=== PATIENT | male | born 2000 | race Caucasian/White ===

== ENCOUNTER 2022-08-27 04:36 | Emergency (ER) | payer OTHER, SELFPAY ==
[2022-08-27 04:43] VITALS: BP 138/68; PULSE 60; RESP 16; TEMP 36.4; O2SAT 99; BMI 23.6
--- NOTE | 2022-08-27 05:03 | ED.SKABFB ---
HPI - Skin/Abscess/Foreign Bdy General Chief complaint: Allergic Reaction Stated complaint: rash Time Seen by Provider: 08/27/22 04:50 Source: patient Mode of arrival: ambulatory History of Present Illness HPI narrative: 23-year-old male who comes in with itchy rash since Saturday and reports that his brothers yd where he has been abuts bushes and trees and he states that the rash has been very itchy but he denies any lip/face/tongue swelling. He denies any medications or changes in soaps/shampoo/lotions. Related Data Previous Rx's Medication Instructions Recorded prednisone 5 mg tablet 5 mg PO DAILY #4 tabs 08/27/22 Allergies Allergy/AdvReac Type Severity Reaction Status Date / Time No Known Allergies Allergy Verified 08/27/22 04:43 Review of Systems Review of Systems: Pertinent positives and negatives as stated in HPI [facility] Past Medical History Source: nursing notes reviewed Social History Social History Alcohol intake: current Smoked in Last 30 Days: No Advance Directives: No Advance Directives Information Provided: No Physical Exam Vital Signs: Vital Signs: Last Vital Signs Temp 97.6 F 08/27/22 04:43 Pulse 60 08/27/22 04:43 Resp 16 08/27/22 04:43 BP 138/68 08/27/22 04:43 Pulse Ox 99 08/27/22 04:43 O2 Del Method Room Air 08/27/22 04:43 BMI result Body Mass Index 23.6 VITAL SIGNS: Reviewed. GENERAL: Well developed, well nourished, in no acute distress. HEAD: Normocephalic/atraumatic EYES: PERRLA, EOMI EARS: Ext canals without abnormality LUNGS: Normal breath sounds. No adventitious sounds or accessory muscle use. SpO2<99> CARDIOVASCULAR: Regular rate and rhythm without noted murmurs ABDOMEN: Soft, non-tender, non-distended with bowel sounds. MUSCULOSKELETAL: No tenderness, deformities, or effusions noted on gross inspection. EXTREMITIES: No cyanosis, clubbing or edema. SKIN: Inspection of the skin reveals rash appears to be on bilateral forearms at the corners of each to the eyebrows on discrete areas of the neck, torso NEUROLOGIC: Alert and oriented x 4. Strength and sensation to light touch were grossly intact x 4. Medications Administered Discontinued Medications Generic Name Dose Route Start Last Admin Trade Name Christiano PRN Reason Stop Dose Admin Diphenhydramine HCl 25 mg 08/27/22 05:02 08/27/22 05:07 Diphenhydramine Hcl 25 Mg Capsule PO 08/27/22 05:03 25 mg ONCE ONE Administration Prednisone 5 mg 08/27/22 05:02 08/27/22 05:07 Prednisone 5 Mg Tablet PO 08/27/22 05:03 5 mg ONCE ONE Administration Medical Decision Making Medical Decision Making MDM Narrative: 22-year-old male with history and clinical presentation most suggestive of allergic dermatitis secondary to poison steffanie. He received Benadryl as well as low-dose prednisone here in the emergency room and was counseled on further management on the discharge paperwork. Differential Diagnosis Please see the discussion above Discharge Plan Discharge Clinical Impression: Allergic dermatitis due to poison steffanie Patient Disposition: Home, Self-Care Instructions: Poison Steffanie (ED) Additional Instructions: 1. Recommend lukewarm showers to prevent further spread of the poison steffanie. 2. Recommend trying [id number] Claritin (loratadine) for itch control during the day but you will need to take Benadryl, 25 mg, in the evening. 3. Complete the short course of steroids. Above all else try to avoid scratching your self anywhere. Use a nail brush to clean underneath your nails with soap and water. Prescriptions: New prednisone 5 mg tablet 5 mg PO DAILY Qty: 4 0RF Interventions: ED Discharge Assessment Last Done: 08/27/22 05:12 Discharge Date/Time: 08/27/22 05:16
[2022-08-27] MEDS: predniSONE 5 MG TABLET PO (05:07)
[2022-08-27] MEDS: diphenhydrAMINE HCL 25 MG CAPSULE PO (05:07)
--- OUTSIDE RECORDS SUMMARY | 2022-08-27 05:15 | XMS_ITS | Continuity of Care Document ---
Author Name Unknown Organization [facility] Address [address] [place] [address]- Care Team Providers Care Regulatory Consultant Name Role Phone Ajit Anthony MD Primary Care Physician [place] [facility] [place]s): 02/28/21 - 03/30/21 [facility] [address] [place], [place] [address] Attending Physician: Kymberly Deshpande Admitting Physician: AdmKymberly bates Referring Physician: Admtr, Kymberly Allergies, Adverse Reactions, Alerts Substance Reaction Severity Status Vicodin 1 C/O - a headache Active 1severe Immunizations Given and Recorded Vaccine Date Status Refusal Reason influenza virus vaccine, inactivated 1 01/24/21 Gi kevin influenza virus vaccine, inactivated 2 03/14/17 Gi kevin influenza virus vaccine, inactivated 02/08/16 Give n Human Papillomavirus Vaccine 02/08/16 Given Human Papillomavirus Vaccine 07/01/14 Given tetanus/diphtheria/pertussis, acel(Tdap) 07/01/14 Given Meningococcal Conjugate Vaccine 07/01/14 Given Varicella Virus Vaccine 06/19/06 Given Varicella Virus Vaccine 03/17/03 Given Measles/Mumps/Rubella Virus Vaccine 3 06/19/06 Giv en Measles/Mumps/Rubella Virus Vaccine 03/17/03 Given Poliovirus Vaccine, Inactivated 06/19/06 Given Poliovirus Vaccine, Inactivated 02 Given Poliovirus Vaccine, Inactivated 02 Given Poliovirus Vaccine, Inactivated 02 Given Diphth/Pertussis,Acel/Tetanus (oldterm) 06/19/06 G iven pneumococcal 7-valent vaccine 04/24/04 Given pneumococcal 7-valent vaccine 02 Given pneumococcal 7-valent vaccine 02 Given pneumococcal 7-valent vaccine 02 Given Haemophilus B conjugate (HbOC) vaccine 06/21/03 Gi kevin Haemophilus B conjugate (HbOC) vaccine 02 Gi kevin Haemophilus B conjugate (HbOC) vaccine 02 Gi kevin Haemophilus B conjugate (HbOC) vaccine 02 Gi kevin diphtheria/tetanus/pertussis, acel(DTaP) 06/21/03 Given diphtheria/tetanus/pertussis, acel(DTaP) 02 Given diphtheria/tetanus/pertussis, acel(DTaP) 02 Given diphtheria/tetanus/pertussis, acel(DTaP) 02 Given hepatitis B pediatric vaccine 02 Given hepatitis B pediatric vaccine 02 Given hepatitis B pediatric vaccine 02 Given 1Result Comment: Patient tollerated well 2Result Comment: [03/14/2017] [facility] [id number] 3Result Comment: [06/19/2006] proquad Medications Colace sodium 100 mg oral capsule 100 mg, 1, capsule, By Mouth, 2 times a day, Refills 0, Maintenance, 11/29/20 16:38:00 EDT, Partialfill upon patient request if the prescription is for a schedule II opioid drug. Start Date: 11/29/20 Status: Ordered cyclobenzaprine 10 mg oral tablet 10 mg, 1, tablet, By Mouth, 3 times a day, PRN, Refills 0, Maintenance, Spasm, 11/29/20 16:38:00 EDT, Partial fill upon patient request if the prescription is for a schedule II opioid drug. Start Date: 11/29/20 Status: Ordered gabapentin 300 mg oral capsule See Instructions, 1 capsule By Mouth in a.m., 1 at noon and 2 capsules at bedtime Dx: pelvic fracture, # 120 capsule, Refills 0, Tot. Refills 0, Maintenance, 12/19/20 15:52:00 EDT, Instructions Replace Required Details, Route to Pharmacy Electronical... Start Date: 12/19/20 Status: Ordered ibuprofen 800 mg oral tablet 800 mg, 1, tablet, By Mouth, 3 times a day, PRN, for 30 days, with food or milk, # 90 tablet, Refills 2, Tot. Refills 2, Acute 04/13/21 17:12:00 EST, Pain , Moderate, 01/13/21 17:12:00 EDT, Route to Pharmacy Electronically, [facility]/pharmacy #[id number], Partial... Start Date: 01/13/21 Stop Date: 04/13/21 Status: Ordered pantoprazole 40 mg oral delayed release tablet 1 tablet = 40 mg, By Mouth, Daily, # 30 tablet, 4 Refills, Maintenance, 12/19/20 15:48:00 EDT, EC Tablet Start Date: 12/19/20 Stop Date: 01/18/21 Status: Ordered Senna 8.6 mg oral tablet 17.2 mg, 2, tablet, By Mouth, Daily, Refills 0, Maintenance, 11/29/20 16:38:00 EDT, Tablet, Partialfill upon patient request if the prescription is for a schedule II opioid drug. Start Date: 11/29/20 Status: Ordered Tylenol 325 mg oral tablet 650 mg, 2, tablet, By Mouth, Every 4 hours, Refills 0, Maintenance, 11/29/20 16:38:00 EDT, Partial fill upon patient request if the prescription is for a schedule II opioid drug. Start Date: 11/29/20 Status: Ordered Problem List Condition Effective Dates Status Health Status Inform ant Closed pelvic fracture (left superior pubc ramus and inferior pubic ramus fractures)(Confirmed) 11/23/20 Active Closed sacral fracture(Confirmed) 11/23/20 Active Displaced fracture of 3rd an d 4th metatarsal bone of left foot with delayed healing(Confirmed) 11/23/20 Active Migraine headache(Confirmed) Active Social History Social History Type Response Smoking Status Never smoker; Tobacc o user in household: No; Type: Cigarettes; Other: father smokes; entered on: 08/29/16 Sex
--- OUTSIDE RECORDS SUMMARY | 2022-08-27 05:15 | XMS_ITS | Continuity of Care Document ---
Author Name Unknown Organization [facility] Address [address] [place] [address]- Care Team Providers Care Steward/Stewardess Deck Name Role Phone Ajit Anthony MD Primary Care Physician Encounter [facility] [place] Date(s): 09/30/21 - 09/30/[address] [address]- Discharge Disposition: A-D/C Walkout Attending Physician: Not on Staff, Attending MD Admitting Physician: Not on Staff, Admitting MD Referring Physician: Not on Staff, Referring MD Allergies, Adverse Reactions, Alerts Substance Reaction Severity [...] Comment: Patient tollerated well 2Result Comment: [03/14/2017] [facility] [id number] 3Result Comment: [06/19/2006] proquad Medications gabapentin 300 mg oral capsule See Instructions, 1 capsule By Mouth in a.m., 1 at noon and 2 capsules at bedtime Dx: pelvic fracture, # 120 capsule, Refills 0, Tot. Refills 0, Maintenance, 12/19/20 15:52:00 EDT, Instructions Replace Required Details, Route to Pharmacy Electronical... Start Date: 12/19/20 Status: Ordered pantoprazole 40 mg oral delayed release tablet 1 tablet = 40 mg, By Mouth, Daily, # 30 tablet, 4 Refills, Maintenance, 12/19/20 15:48:00 EDT, EC Tablet Start Date: 12/19/20 Stop Date: 01/18/21 Status: Ordered Tylenol 325 mg oral tablet [...] delayed healing(Confirmed) 11/23/20 Active Migraine headache(Confirmed) Active Vital Signs Most recent to oldest [Reference Range]: 1 Height 175 cm (09/30/21 12:10 AM) Weight 69.4 kg (09/30/21 12:10 AM) Oxygen Saturation [94-100 %] 99 % (09/30/21 12:10 AM) Pulse Rate [55-90 bpm] 78 bpm (09/30/21 12:10 AM) Body Mass Index [18.5-24.99] 22.66 (09/30/21 12:10 AM) Blood Pressure [90-138/55-84 mm Hg] 147/ 73mm Hg *H* (09/30/21 12:10 AM) Respiratory Rate [16-30 br/min] 16 br/mi n (09/30/21 12:10 AM) Temperature [96.8-100.4 DegF] 98.2 DegF (09/30/21 12:10 AM) Mode of Delivery (Oxygen) Room air (09/30/21 12:10 AM) Blood pressure sites Arm, right (09/30/21 12:10 AM) Temperature Route Oral (09/30/21 12:10 AM) Dry Weight 69.4 kg (09/30/21 12:10 AM) Weight Obtained Via Standing scale (09/30/21 12:10 AM) Dry Weight Obtained Via Standing scale (09/30/21 12:10 AM) Social History Social History Type Response Smoking Status Never smoker; Tobacc o user in household: No; Type: Cigarettes; Other: father smokes; entered on: 08/29/16 Sex
--- OUTSIDE RECORDS SUMMARY | 2022-08-27 05:15 | XMS_ITS | Continuity of Care Document ---
Author Name Unknown Organization [facility] Address [address] [place] [address]- Care Team Providers Care Design Project Manager Name Role Phone Ajit Anthony MD Primary Care Physician Encounter [facility] Date(s): 12/02/20 - 01/01/21 [facility] [address] [place], [place] [address] Allergies, Adverse Reactions, Alerts Substance Reaction Severity Status Vicodin 1 C/O - a headache Active 1severe Immunizations Given and Recorded Vaccine Date Status Refusal Reason influenza virus vaccine, inactivated 1 03/14/17 Gi kevin influenza virus vaccine, inactivated 02/08/16 Give n Human Papillomavirus Vaccine 02/08/16 Given Human Papillomavirus Vaccine 07/01/14 Given tetanus/diphtheria/pertussis, acel(Tdap) 07/01/14 Given Meningococcal Conjugate Vaccine 07/01/14 Given Varicella Virus Vaccine 06/19/06 Given Varicella Virus Vaccine 03/17/03 Given Measles/Mumps/Rubella Virus Vaccine 2 06/19/06 Giv en Measles/Mumps/Rubella Virus Vaccine 03/17/03 Given Poliovirus Vaccine, Inactivated 06/19/06 Given Poliovirus Vaccine, Inactivated 02 Given Poliovirus Vaccine, Inactivated 02 Given Poliovirus Vaccine, Inactivated 02 Given Diphth/Pertussis,Acel/Tetanus (oldterm) 06/19/06 G iven pneumococcal 7-valent vaccine 04/24/04 Given pneumococcal 7-valent vaccine 02 Given pneumococcal 7-valent vaccine 02 Given pneumococcal 7-valent vaccine 02 Given Haemophilus B conjugate (HbOC) vaccine 06/21/03 Gi keivn Haemophilus B conjugate (HbOC) vaccine 02 Gi kevin Haemophilus B conjugate (HbOC) vaccine 02 Gi kevin Haemophilus B conjugate (HbOC) vaccine 02 Gi kevin diphtheria/tetanus/pertussis, acel(DTaP) 06/21/03 Given diphtheria/tetanus/pertussis, acel(DTaP) 02 Given diphtheria/tetanus/pertussis, acel(DTaP) 02 Given diphtheria/tetanus/pertussis, acel(DTaP) 02 Given hepatitis B pediatric vaccine 02 Given hepatitis B pediatric vaccine 02 Given hepatitis B pediatric vaccine 02 Given 1Result Comment: [03/14/2017] [facility] [id number] 2Result Comment: [06/19/2006] proquad Medications Colace sodium 100 [...] tablet, By Mouth, 3 times a day, Refills 0, Maintenance, 11/29/20 16:38:00 EDT, Partial fill upon patient request if the prescription is for a schedule II opioid drug. Start Date: 11/29/20 Status: Ordered oxyCODONE 5 mg oral tablet See Instructions, PRN, 1 tablet By Mouth in a.m, at noon, in early pm and 2 tablets at bedtime. Dx:pelvic fracture, # 70 tablet, Refills 0, Tot. Refills 0, Acute 01/18/21 16:13:00 EDT, as needed forpain, 12/19/20 16:12:00 EDT, Instructions Replace... Start Date: 12/19/20 Stop Date: 01/18/21 Status: Ordered pantoprazole 40 mg oral delayed [...]
--- OUTSIDE RECORDS SUMMARY | 2022-08-27 05:15 | XMS_ITS | Continuity of Care Document ---
Author Name Unknown Organization [facility] Address Unknown Care Team Providers Care High School Academic Coach Name Role Phone Ajit Anthony MD Primary Care Physician Encounter [facility] [place] Date(s): 11/30/20 - 01/06/21 [facility] Attending Physician: Claudia CHAMPION MD, Matt Pickard Allergies, Adverse Reactions, Alerts Substance Reaction Severity [...] pediatric vaccine 02 Given 1Result Comment: [03/14/2017] [facility] [id number] 2Result Comment: [06/19/2006] proquad Medications Colace sodium [...]
--- OUTSIDE RECORDS SUMMARY | 2022-08-27 05:15 | XMS_ITS | Continuity of Care Document ---
Author Name Unknown Organization [facility] Address [address] [place] [address]- Care Team Providers Care Senior Oracle Database Administrator Name Role Phone Ajit Anthony MD Primary Care Physician [place] [facility] [place](s): 12/19/20 - 12/26/20 [facility] [address] [place], [place] [address] Attending Physician: Ajit Anthony MD Allergies, Adverse Reactions, Alerts Substance Reaction [...] pediatric vaccine 02 Given 1Result Comment: [03/14/2017] [facility] [id number] 2Result Comment: [06/19/2006] proquad Medications Colace sodium [...] opioid drug. Start Date: 11/29/20 Status: Ordered Lovenox 30 mg/0.3 mL injectable solution 0.3 mL = 30 mg, Subcutaneous Injection, Daily, # 8.4 mL, 0 Refills, Acute 12/27/20 16:45:00 EDT, 11/29/20 16:41:00 EDT, Solution, Partial fill upon patient request if the prescription is for a schedule II opioid drug. Start Date: 11/29/20 Stop Date: 12/27/20 Status: Ordered oxyCODONE 5 mg oral tablet [...] Most recent to oldest [Reference Range]: 1 2 Height 176 cm (12/19/20 3:46 PM) 176 cm (12/19/20 3:37 PM) Weight 70.9 kg (12/19/20 3:37 PM) Oxygen Saturation [94-100 %] 93 % *L* (12/19/20 3:37 PM) Pulse Rate [55-90 bpm] 98 bpm *H* (12/19/20 3:46 PM) 131 bpm *H* (12/19/20 3:37 PM) Body Mass Index [18.5-24.99] 22.89 (12/19/20 3:37 PM) Blood Pressure [71-110/30-71 mm Hg] 130/ 80mm Hg *H* (12/19/20 3:46 PM) 162/94mm Hg *H* (12/19/20 3:37 PM) Temperature [96.8-100.4 DegF] 97.9 DegF (12/19/20 3:37 PM) Mode of Delivery (Oxygen) Room air (12/19/20 3:37 PM) Blood pressure sites Arm, left (12/19/20 3:37 PM) Temperature Route Temporal (12/19/20 3:37 PM) Social History Social History Type Response Smoking Status Never smoker; Tobacc o user in household: No; Type: Cigarettes; Other: father smokes; entered on: 08/29/16 Sex
--- OUTSIDE RECORDS SUMMARY | 2022-08-27 05:15 | XMS_ITS | Continuity of Care Document ---
Author Name Unknown Organization [facility] Address [address] [place] [address]- Care Team Providers Care Anchor Operator Name Role Phone Ajit Anthony MD Primary Care Physician Encounter [facility] [place] Date(s): 06/20/21 - 07/21/21 [facility] [address] [place], [place] [address] Attending Physician: Dov Hartley MD Allergies, Adverse Reactions, Alerts Substance Reaction [...] Comment: Patient tollerated well 2Result Comment: [03/14/2017] [facility] [id number] 3Result Comment: [06/19/2006] proquad Medications gabapentin 300 [...]
--- OUTSIDE RECORDS SUMMARY | 2022-08-27 05:15 | XMS_ITS | Continuity of Care Document ---
Author Name Unknown Organization [facility] Address [address] [place] [address]- Care Team Providers Care Homebirth Midwife Name Role Phone Ajit Anthony MD Primary Care Physician Encounter [facility] Date(s): 12/07/20 - 01/06/21 [facility] [address] [place], [place] [address] Allergies, Adverse Reactions, Alerts Substance Reaction Severity [...] pediatric vaccine 02 Given 1Result Comment: [03/14/2017] [facility] [id number] 2Result Comment: [06/19/2006] proquad Medications Colace sodium [...]
--- OUTSIDE RECORDS SUMMARY | 2022-08-27 05:15 | XMS_ITS | Continuity of Care Document ---
Author Name Unknown Organization [facility] Address Unknown Care Team Providers Care Multimedia Developer Name Role Phone Ajit Anthony MD Primary Care Physician En[place] [facility] [place](s): 12/07/20 - 01/06/21 [facility] Attending Physician: Kymberly Deshpande Admitting Physician: Kymberly Deshpande Referring Physician: Kymberly Deshpande Allergies, Adverse Reactions, Alerts Substance Reaction Severity [...] vaccine 02 Given 1Result Comment: [03/14/2017] [facility] [id number] 2Result Comment: [06/19/2006] proquad Medications Colace sodium [...]
--- OUTSIDE RECORDS SUMMARY | 2022-08-27 05:15 | XMS_ITS | Continuity of Care Document ---
Author Name Unknown Organization [facility] Address [address] [place] [address]- Care Team Providers Care Note Specialist Name Role Phone Ajit Anthony MD Primary Care Physician Encounter [facility] Date(s): 08/21/21 - 09/20/21 [facility] [address] [place], [place] [address] Allergies, Adverse Reactions, Alerts Substance Reaction [...] Comment: Patient tollerated well 2Result Comment: [03/14/2017] [facility] [id number] 3Result Comment: [06/19/2006] proquad Medications gabapentin 300 [...]
--- OUTSIDE RECORDS SUMMARY | 2022-08-27 05:15 | XMS_ITS | Continuity of Care Document ---
Author Name Unknown Organization [facility] Address [address] [place] [address]- Care Team Providers Care Patient Transport Officer Name Role Phone Ajit Anthony MD Primary Care Physician Encounter [facility] Date(s): 08/21/21 - 09/20/21 [facility] [address] [place], [place] [address] Attending Physician: Kymberly Deshpande Admitting Physician: AdmKymberly bates Referring Physician: AdmtrKymberly Allergies, Adverse Reactions, Alerts Substance Reaction Severity [...] Comment: Patient tollerated well 2Result Comment: [03/14/2017] [facility] [id number] 3Result Comment: [06/19/2006] proquad Medications gabapentin 300 [...]
--- OUTSIDE RECORDS SUMMARY | 2022-08-27 05:15 | XMS_ITS | Continuity of Care Document ---
Author Name Unknown Organization [facility] Address Unknown Care Team Providers Care Supervisor Dairy Sanitation Name Role Phone Ajit Anthony MD Primary Care Physician Encounter [facility] Date(s): 11/30/20 - 12/30/20 [facility] Allergies, Adverse Reactions, Alerts Substance Reaction Severity [...] pediatric vaccine 02 Given 1Result Comment: [03/14/2017] [facility] [id number] 2Result Comment: [06/19/2006] proquad Medications Colace sodium [...]
--- OUTSIDE RECORDS SUMMARY | 2022-08-27 05:15 | XMS_ITS | Continuity of Care Document ---
Author Name Unknown Organization [facility] Address [address] [place] [address]- Care Team Providers Care Field Map Editor Name Role Phone Nadeem David MD Primary Care Physician En[facility] Date(s): 07/30/19 - 08/06/19 [facility] [address] [place] [address]- [facility] Encounter Diagnosis Otitis externa, left(Discharge Diagnosis) - 07/30/19 Attending Physician: Yomi Grider MD Referring Physician: Nadeem David MD Allergies, Adverse Reactions, Alerts Substance Reaction Severity Status NKA Active Immunizations Given and Recorded Vaccine Date Status [...] pediatric vaccine 02 Given 1Result Comment: [03/14/2017] [facility] [id number] 2Result Comment: [06/19/2006] proquad Problem List Condition Effective Dates Status Health Status Inform ant Migraine headache(Confirmed) Active Well child(Confirmed) Active Diagnosis Diagnosis Type Effective Dates Health Status Cl inical Service Informant Otitis externa, left Discharge Diagnosis 07/30/19 Vital Signs Most recent to oldest [Reference Range]: 1 Height 175 cm (07/30/19 1:50 PM) Weight 79.1 kg (07/30/19 1:50 PM) Oxygen Saturation [94-100 %] 99 % (07/30/19 1:50 PM) Pulse Rate [55-90 bpm] 103 bpm *H* (07/30/19 1:50 PM) Body Mass Index [18.5-24.99] 25.83 *H* (07/30/19 1:50 PM) Blood Pressure [80-130/50-80 mm Hg] 140/ 95mm Hg *H* (07/30/19 1:50 PM) Respiratory Rate [16-30 br/min] 18 br/mi n (07/30/19 1:50 PM) Temperature [96.8-100.4 DegF] 99.4 DegF (07/30/19 1:50 PM) Mode of Delivery (Oxygen) Room air (07/30/19 1:50 PM) Blood pressure sites Arm, right (07/30/19 1:50 PM) Temperature Route Oral (07/30/19 1:50 PM) Dry Weight 79.1 kg (07/30/19 1:50 PM) Weight Obtained Via Standing scale (07/30/19 1:50 PM) Dry Weight Obtained Via Standing scale (07/30/19 1:50 PM) Social History Social History Type Response Smoking Status Never smoker; Tobacc o user in household: No; Type: Cigarettes; Other: father smokes; entered on: 08/29/16 Sex
--- OUTSIDE RECORDS SUMMARY | 2022-08-27 05:15 | XMS_ITS | Continuity of Care Document ---
Author Name Unknown Organization [facility] ter Address [address] [place] [address]- Care Team Providers Care Premium Auditor Name Role Phone Ajit Anthony MD Primary Care Physician Encounter [facility] Date(s): 06/08/22 - 06/09/[address] [address]- Encounter Diagnosis Abdominal pain(Final) - 06/09/22 Discharge Disposition: A-D/C Home Attending Physician: Silvia Simeon MD Admitting Physician: Silvia Simeon MD Referring Physician: Not on Staff, Referring [...] Comment: Patient tollerated well 2Result Comment: [03/14/2017] [facility] [id number] 3Result Comment: [06/19/2006] proquad Medications doxycycline hyclate 100 mg oral enteric coated tablet 1 tablet = 100 mg, By Mouth, 2 times a day, for 14 days, # 28 tablet, 0 Refills, Acute 06/23/22 7:24:00 EDT, 06/09/22 7:24:00 EST, CR Tablet, [facility]/pharmacy #[id number], Partial fill upon patient request if the prescription is for a schedule II opioid drug.,... Start Date: 06/09/22 Stop Date: 06/23/22 Status: Ordered gabapentin 300 mg oral capsule See Instructions, 1 capsule By Mouth in a.m., 1 at noon and 2 capsules at bedtime Dx: pelvic fracture, # 120 capsule, Refills 0, Tot. Refills 0, Maintenance, 12/19/20 15:52:00 EDT, Instructions Replace Required Details, Route to Pharmacy Electronical... Start Date: 12/19/20 Status: Ordered ibuprofen 600 mg oral tablet 600 mg, 1, tablet, By Mouth, 4 times a day, PRN, for 5 days, # 20 tablet, Refills 0, Tot. Refills 0, Acute 06/14/22 7:25:00 EDT, for pain, 06/09/22 7:25:00 EST, Route to Pharmacy Electronically, [facility]/pharmacy #[id number], Partial fill upon patient request if... Start Date: 06/09/22 Stop Date: 06/14/22 Status: Ordered MorPHINE Inj 4 mg, Injection, IV Push Slowly, Every 5 minutes for 3 doses/times, PRN for Pain , Moderate, and SBP greater than 100, Routine, 06/08/22 18:35:00 EST, Stop date Limited # of times Start Date: 06/08/22 Stop Date: 06/09/22 Status: Discontinued ondansetron 4 mg oral tablet, disintegrating 1 tablet = 4 mg, By Mouth, Every 8 hours, PRN Nausea & Vomiting, # 9 tablet, 0 Refills, Maintenance, 06/09/22 7:24:00 EST, Tablet, [facility]/pharmacy #[id number], Partial fill upon patient request if the prescription is for a schedule II opioid drug., 179, cm, 03... Start Date: 06/09/22 Stop Date: 06/12/22 Status: Ordered pantoprazole 40 mg oral delayed [...] Date: 11/29/20 Status: Ordered Problem List Condition Confirmation Course Effective Dates Status [facility] Informant Closed pelvic fracture (left superior pubc ramus and inferior pubic ramus fractures) Confirmed 11/23/20 Active Closed sacral fracture Confirmed 11/23/20 Active Displaced fracture of 3rd and 4th metatarsal bone of left foot with delayed healing Confirmed 11/23/20 Active Migraine headache Confirmed Active Results Radiology Reports * Exam Date Time Procedure Performing Provider Status 06/08/22 11:58 PM US Pelvic Doppler Comp Ruth Mojica; Auth (Verified) Notes: (US Pelvic Doppler Comp) Reason For Exam: Scrotal Pain;Other: RESULT: US Pelvic Doppler Comp US Scrotum and Contents, US Pelvic Doppler Comp INDICATION: Sudden onset generalized AP starting this morning. Hx of extensive abd trauma. Reason: Scrotal Pain; Clinical Question(s): Torsion COMPARISON: 05/24/2020. TECHNIQUE: High-resolution sonography with grayscale, color and spectral Doppler analysis. FINDINGS: RIGHT: Right testicle size: 4.1 x 1.9 x 3.1 cm (12.6 cc). Normal right testicle size, contour and echotexture without focal lesions. Normal arterial and venous waveforms. The epididymis is unremarkable. Trace hydrocele. No significant varicocele. LEFT: Left testicle size: 4.1 x 2.0 x 2.9 cm (12.6 cc). Normal left testicle size, contour and echotexture without focal lesions. Normal arterial and venous waveforms. 2 adjacent epididymal head cysts versus a septated cyst measuring up to 0.7 cm, slightly increased from 2020. Increased flow to the left epididymis on the color Doppler image, suggesting epididymitis. Trace hydrocele. Borderline left varicocele, unchanged. 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 IMPRESSION: No evidence of testicular torsion. Increased flow to the left epididymis on color Doppler imaging, suggesting epididymitis. Unchanged borderline left varicocele. 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 Addended result of left epididymitis was conveyed by Cortext by Dr. Moore to Michael Breaux on 06/09/2022 at 6:06 AM with understanding acknowledged. I have personally reviewed the images and I agree with this report. WSN: [id number] Ordering Physician: John Paul Lucero Dictated By: Steffanie Moore DO Dictated Date/Time: 06/09/22 6:28 am Reviewed By: Imani Preston MD Signed By: Imani Preston MD Signed Date/Time: 06/09/22 6:33 am Transcribed By: DEX Transcribed Date/Time: 06/09/22 6:07 am * Exam Date Time Procedure Performing Provider Status 06/08/22 11:58 PM US Scrotum and Contents Ruth Mojica ; Catracho (Verified) Notes: (US Scrotum and Contents) Reason For Exam: Scrotal Pain;Other: RESULT: US Scrotum and Contents US Scrotum and Contents, US Pelvic Doppler Comp INDICATION: Sudden onset generalized AP starting this morning. Hx of extensive abd trauma. Reason: Scrotal Pain; Clinical Question(s): Torsion COMPARISON: 05/24/2020. TECHNIQUE: High-resolution sonography with grayscale, color and spectral Doppler analysis. FINDINGS: RIGHT: Right testicle size: 4.1 x 1.9 x 3.1 cm (12.6 cc). Normal right testicle size, contour and echotexture without focal lesions. Normal arterial and venous waveforms. The epididymis is unremarkable. Trace hydrocele. No significant varicocele. LEFT: Left testicle size: 4.1 x 2.0 x 2.9 cm (12.6 cc). Normal left testicle size, contour and echotexture without focal lesions. Normal arterial and venous waveforms. 2 adjacent epididymal head cysts versus a septated cyst measuring up to 0.7 cm, slightly increased from 2020. Increased flow to the left epididymis on the color Doppler image, suggesting epididymitis. Trace hydrocele. Borderline left varicocele, unchanged. 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 IMPRESSION: No evidence of testicular torsion. Increased flow to the left epididymis on color Doppler imaging, suggesting epididymitis. Unchanged borderline left varicocele. 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 Addended result of left epididymitis was conveyed by Cortext by Dr. Moore to Michael Breaux on 06/09/2022 at 6:06 AM with understanding acknowledged. I have personally reviewed the images and I agree with this report. WSN: [id number] Ordering Physician: John Paul Lucero Dictated By: Steffanie Moore DO Dictated Date/Time: 06/09/22 6:28 am Reviewed By: Imani Perston MD Signed By: Imani Preston MD Signed Date/Time: 06/09/22 6:33 am Transcribed By: DEX Transcribed Date/Time: 06/09/22 6:07 am * Exam Date Time Procedure Performing Provider Status 06/08/22 10:[address] Abd/Pelvis W/ IV Contrast Only Josefina Guzmán; Auth (Verified) Notes: (CT Abd/Pelvis W/ IV Contrast Only) Reason For Exam: RLQ abdominal pain;Other: RESULT: CT Abd/Pelvis W/ IV Contrast Only CT Abd/Pelvis W/ IV Contrast Only Hx of Present Illness: Sudden onset generalized AP starting this morning. VSS, but hx of extensive abd trauma. Vague constipation but LBM today. No other complaints. Denies blood in stools.; Reason: Other:; RLQ abdominal pain; Clinical Question(s): Appendicitis; Order Comment: TECHNIQUE: Spiral CT through the abdomen and pelvis with IV contrast formatted in 3 planes. 75 cc of Omnipaque 300 was administered intravenously. This study was performed without oral contrast. Weight-based protocol using automatic tube modulation was used to optimize exposure parameters. CTDIvol Body: 11.50 mGy, DLP Body: 598 mGy*cm. COMPARISON: 11/25/2020 FINDINGS: Cottage Supervisor View Findings, Lines and Tubes: None. Visualized Chest: Lung bases are clear. No pleural effusion. The heart is normal in size. No pericardial effusion. Diaphragm: Normal. Liver: Normal. Gallbladder: No CT evidence of gallbladder pathology. Bile ducts: No biliary ductal dilation. Spleen: Normal. Pancreas: Normal. Adrenal glands: Normal. Kidneys and ureters: No hydronephrosis, stones, or suspicious masses. Bladder: Normal. Reproductive organs: Unremarkable. Stomach, small bowel, and large bowel: Normal. Appendix: The appendix appears slightly prominent. There may be some mild haziness of the wall of the appendix comes close is not definitive. No definite findings of appendicitis appreciated. Peritoneum and retroperitoneum: No ascites or pneumoperitoneum. No omental or mesenteric lesions. Lymph nodes: No enlarged lymph nodes. Blood vessels: Normal. No aneurysm. No evidence of venous thrombosis. Abdominal and pelvic wall: Unremarkable. Bones: Evidence of previous trauma with sacral screw. Persistent fracture line seen in the sacrum. Pubic bone deformity consistent with old trauma. IMPRESSION: Appendix appears to extend posteriorly from the cecum into the deep pelvis. I do not see definite inflammatory change, though the wall may be slightly hazy in appearance and early appendicitis is notexcluded. Correlate with clinical exam. No other acute abnormality appreciated. WSN: [id number] Ordering Physician: John Paul Lucero Dictated By: Pérez Sevilla MD Dictated Date/Time: 06/08/22 10:58 p Reviewed By: Pérez Sevilla MD Signed By: Pérez Sevilla MD Signed Date/Time: 06/08/22 10:58 pm Transcribed By: DEX Transcribed Date/Time: 06/08/22 10:50 pm Vital Signs Most recent to oldest [Reference Range]: 1 2 3 Height 179 cm (06/09/22 1:59 AM) 179 cm (06/08/22 10:03 PM) 179 cm (06/08/22 5:49 PM) Weight 69.7 kg (06/09/22 1:59 AM) 69.7 kg (06/08/22 10:03 PM) 69.7 kg (06/08/22 5:49 PM) Oxygen Saturation [94-100 %] 100 % (06/09/22 6:29 AM) 100 % (06/09/22 1:59 AM) 98 % (06/08/22 10:03 PM) Pulse Rate [55-90 bpm] 60 bpm (06/09/22 6:29 AM) 64 bpm (06/09/22 1:59 AM) 64 bpm (06/08/22 10:03 PM) Body Mass Index [18.5-24.99 kg/m2] 21.75 kg/m2 (06/09/22 1:59 AM) 21.75 kg/m2 (06/08/22 10:03 PM) 21.75 kg/m2 (06/08/22 5:46 PM) Blood Pressure [90-138/55-84 mm Hg] 122/51mm Hg (06/09/22 6:29 AM) 139/67mm Hg *H* (06/09/22 1:59 AM) 137/47mm Hg (06/08/22 10:03 PM) Respiratory Rate [16-30 br/min] 18 br/min (06/09/22 6:29 AM) 18 br/min (06/08/22 8:58 PM) 18 br/min (06/08/22 8:28 PM) Temperature [96.8-100.4 DegF] 98.0 DegF (06/09/22 1:59 AM) 98.2 DegF (06/08/22 10:03 PM) 98.3 DegF (06/08/22 7:37 PM) Mode of Delivery (Oxygen) Room air (06/09/22 6:29 AM) Room air (06/09/22 1:59 AM) Room air (06/08/22 10:03 PM) Blood pressure sites Arm, right (06/09/22 1:59 AM) Arm, right (06/08/22 10:03 PM) Arm, right (06/08/22 5:46 PM) Temperature Route Oral (06/09/22 1:59 AM) Oral (06/08/22 10:03 PM) Oral (06/08/22 7:37 PM) Dry Weight 69.7 kg (06/09/22 1:59 AM) 69.7 kg (06/08/22 10:03 PM) 69.7 kg (06/08/22 5:49 PM) Social History Social History Type Response Smoking Status Never smoker; Tobacc o user in household: No; Type: Cigarettes; Other: father smokes; entered on: 08/29/16 Sex Note * Namita RIVERA, Michael Hickman: PERFORM Event Display: Patient Education Leaflets Authored Date: [id number] Epididymitis ?? [id number] Epididymitis Inflammation of the epididymis can cause pain and swelling in your scrotum. The epididymis is a small tube next to each testicle that stores sperm. Epididymitis is often caused by an infection. In sexually active adults, it's often caused by a sexually transmitted infection (STI) such as chlamydia or gonorrhea. In children and in adults over 40, it can be from bacteria from other parts of the urinary tract (not an STI infection). Symptoms may begin with pain in the lower belly (abdomen) or low back. The pain then spreads down into the scrotum. Often only 1 side is affected. The testicle and scrotum swell and become very painful and red. You may have??a fever and a burning feeling when passing urine. Sometimes you may have discharge from the penis. Treatment is with antibiotics, and anti-inflammatory and pain medicines. The condition should get better over the first few days of treatment. But it will take a few weeks for all the swelling and mild pain to go away. If your healthcare provider thinks that an STI is the??cause, your sexual partners may need to be treated. Home care Here are some home care tips to help you or your child: ??? Support the scrotum. For older childrenand adults: When lying down, place a rolled towel under the scrotum. When walking, use an athletic supporter or 2 pairs of jockey-style underwear. ??? To ease pain, put ice packs on the inflamed area. To make an??ice pack, put ice cubes in a plastic bag that seals at the top. Wrap the bag in a clean, thin??towel. Never put an ice pack directly on the skin. ??? Take pain medicine as directed. You may use??mnnq-ygr-wpbuvuu medicines??to control pain, unless another medicine was given. If you havelong-term (chronic) liver or kidney disease, talk with your healthcare provider before taking thesemedicines. Also talk with your provider if you've ever had a stomach ulcer or digestive tract bleeding. ??? Get some rest. Rest in bed for the first few days until the fever, pain, and swelling get better. It may take a few weeks for all of the swelling to go away. ??? Prevent constipation. Constipation??can make you strain. This makes the pain worse. Prevent constipation??by eating natural laxatives. These include prunes, fresh fruits, and whole-grain cereals.??If needed, use a mild ckxw-bjr-xvarxzu laxative??for constipation. Mineral oil can be used to keep the stools soft. ??? Take all medicine as directed. Don't miss any doses. And don't stop taking your medicine early, even if you feelbetter. ??? Teens and adults: Wait to have sex. Don't have sex until you've finished all treatment and all symptoms have cleared. ?? Follow-up care Follow up with your healthcare provider, or as advised, to be sure you're responding correctly to treatment. If a culture was taken, you may call for the result as directed. A culture test can ensurethat you're on the correct antibiotic.? When to get medical advice Call your healthcare provider right away??if any of these occur: ??? Fever of 100.4??F (38??C) or higher, or as advised by your child's or your healthcare provider ??? More pain or swelling of the testicle after starting treatment ??? Pressure or pain that gets worse ??? Unable to pass urine for 8 hours ?? Last Reviewed Date: 2021 ?? [id number] [employer]. All rights reserved. This information is not intended as a substitute for professional medical care. Always follow your healthcare professional's instructions. ?? * JOSELO Willard S: TRANSCRIImani Jurado MD: VERIFY Steffanie Moore DO: SIGN Event Display: Result: Authored Date: [id number] US Scrotum and Contents, US Pelvic Doppler Comp INDICATION: Sudden onset generalized AP starting this morning. Hx of extensive abd trauma. Reason: Scrotal Pain; Clinical Question(s): Torsion COMPARISON: 05/24/2020. TECHNIQUE: High-resolution sonography with grayscale, color and spectral Doppler analysis. FINDINGS: RIGHT: Right testicle size: 4.1 x 1.9 x 3.1 cm (12.6 cc). Normal right testicle size, contour and echotexture without focal lesions. Normal arterial and venous waveforms. The epididymis is unremarkable. Trace hydrocele. No significant varicocele. LEFT: Left testicle size: 4.1 x 2.0 x 2.9 cm (12.6 cc). Normal left testicle size, contour and echotexture without focal lesions. Normal arterial and venous waveforms. 2 adjacent epididymal head cysts versus a septated cyst measuring up to 0.7 cm, slightly increased from 2020. Increased flow to the left epididymis on the color Doppler image, suggesting epididymitis. Trace hydrocele. Borderline left varicocele, unchanged. 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 IMPRESSION: No evidence of testicular torsion. Increased flow to the left epididymis on color Doppler imaging, suggesting epididymitis. Unchanged borderline left varicocele. 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 Addended result of left epididymitis was conveyed by Cortext by Dr. Moore to [facility] on 06/09/2022 at 6:06 AM with understanding acknowledged. I have personally reviewed the images and I agree with this report. WSN: [id number] Ordering Physician: John Paul Lucero Dictated By: Steffanie Moore DO Dictated Date/Time: 06/09/22 6:28 am Reviewed By: Imani Preston MD Signed By: Imani Preston MD Signed Date/Time: 06/09/22 6:33 am Transcribed By: CSEnoc Transcribed Date/Time: 06/09/22 6:[address] Abdomen and Pelvis W contrast IV * RACHELLSPkamaljit , CIS S: TRANSCRIBE Pérez Sevilla MD: VERIFY Event Display: Result: Authored Date: [id number] CT Abd/Pelvis W/ IV Contrast Only Hx of Present Illness: Sudden onset generalized AP starting this morning. VSS, but hx of extensive abd trauma. Vague constipation but LBM today. No other complaints. Denies blood in stools.; Reason: Other:; RLQ abdominal pain; Clinical Question(s): Appendicitis; Order Comment: TECHNIQUE: Spiral CT through the abdomen and pelvis with IV contrast formatted in 3 planes. 75 cc of Omnipaque 300 was administered intravenously. This study was performed without oral contrast. Weight-based protocol using automatic tube modulation was used to optimize exposure parameters. CTDIvol Body: 11.50 mGy, DLP Body: 598 mGy*cm. COMPARISON: 11/25/2020 FINDINGS: Cottage Supervisor View Findings, Lines and Tubes: None. Visualized Chest: Lung bases are clear. No pleural effusion. The heart is normal in size. No pericardial effusion. Diaphragm: Normal. Liver: Normal. Gallbladder: No CT evidence of gallbladder pathology. Bile ducts: No biliary ductal dilation. Spleen: Normal. Pancreas: Normal. Adrenal glands: Normal. Kidneys and ureters: No hydronephrosis, stones, or suspicious masses. Bladder: Normal. Reproductive organs: Unremarkable. Stomach, small bowel, and large bowel: Normal. Appendix: The appendix appears slightly prominent. There may be some mild haziness of the wall of the appendix comes close is not definitive. No definite findings of appendicitis appreciated. Peritoneum and retroperitoneum: No ascites or pneumoperitoneum. No omental or mesenteric lesions. Lymph nodes: No enlarged lymph nodes. Blood vessels: Normal. No aneurysm. No evidence of venous thrombosis. Abdominal and pelvic wall: Unremarkable. Bones: Evidence of previous trauma with sacral screw. Persistent fracture line seen in the sacrum. Pubic bone deformity consistent with old trauma. IMPRESSION: Appendix appears to extend posteriorly from the cecum into the deep pelvis. I do not see definite inflammatory change, though the wall may be slightly hazy in appearance and early appendicitis is notexcluded. Correlate with clinical exam. No other acute abnormality appreciated. WSN: [id number] Ordering Physician: John Paul Lucero Dictated By: Pérez Sevilla MD Dictated Date/Time: 06/08/22 10:58 p Reviewed By: Pérez Sevilla MD Signed By: Pérez Sevilla MD Signed Date/Time: 06/08/22 10:58 pm Transcribed By: DEX Transcribed Date/Time: 06/08/22 10:50 pm US Scrotum and testicle * BHSPowerscribe , CIS S: TRANSCRIBE Imani Preston MD: VERIFY Steffanie Moore DO: SIGN Event Display: Result: Authored Date: [id number] US Scrotum and Contents, US Pelvic Doppler Comp INDICATION: Sudden onset generalized AP starting this morning. Hx of extensive abd trauma. Reason: Scrotal Pain; Clinical Question(s): Torsion COMPARISON: 05/24/2020. TECHNIQUE: High-resolution sonography with grayscale, color and spectral Doppler analysis. FINDINGS: RIGHT: Right testicle size: 4.1 x 1.9 x 3.1 cm (12.6 cc). Normal right testicle size, contour and echotexture without focal lesions. Normal arterial and venous waveforms. The epididymis is unremarkable. Trace hydrocele. No significant varicocele. LEFT: Left testicle size: 4.1 x 2.0 x 2.9 cm (12.6 cc). Normal left testicle size, contour and echotexture without focal lesions. Normal arterial and venous waveforms. 2 adjacent epididymal head cysts versus a septated cyst measuring up to 0.7 cm, slightly increased from 2020. Increased flow to the left epididymis on the color Doppler image, suggesting epididymitis. Trace hydrocele. Borderline left varicocele, unchanged. 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 IMPRESSION: No evidence of testicular torsion. Increased flow to the left epididymis on color Doppler imaging, suggesting epididymitis. Unchanged borderline left varicocele. 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 Addended result of left epididymitis was conveyed by Cortext by Dr. Moore to Michael Breaux on 06/09/2022 at 6:06 AM with understanding acknowledged. I have personally reviewed the images and I agree with this report. WSN: [id number] Ordering Physician: John Paul Lucero Dictated By: Steffanie Moore DO Dictated Date/Time: 06/09/22 6:28 am Reviewed By: Imani Preston MD Signed By: Imani Preston MD Signed Date/Time: 06/09/22 6:33 am Transcribed By: DEX Transcribed Date/Time: 06/09/22 6:07 am Patient Care team information Care Team Personnel Name: Ajit Anthony MD Position: [facility] Primary Care Physician Member Role: PCP Address: Address: [address] [place] [address] Adult & Pediatric [place], [place] [address] Name: Michael Ludwig Position: [facility] Associate Professional Member Role: ED Physician Manager Engagement Address: Address: [address] [place] [address] [place], [place] [address] Name: Silvia Simeon MD Position: [facility] ED Medicine MD Member Role: ED Attending Physician Address: Address: [address] [place] [address] Name: Summer Mane RN Position: [facility] ED RN W/OE and Tasks Member Role: Patient Care Provider Name: Afia Mabry Position: [facility] ED TA [facility] Care Team Related Persons Name: JOSE ANTONIO ANTONIO Address: home [address] [place] [id number] Name: ADAL GUERRIER Address: [address] [place] [address] Name: ADAL GUERRIER Address: home [address] [place] [address]
--- OUTSIDE RECORDS SUMMARY | 2022-08-27 05:15 | XMS_ITS | Continuity of Care Document ---
Author Name Unknown Organization [facility] Address [address] [place] [address]- Care Team Providers Care Logistics Engineer Name Role Phone Ajit Anthony MD Primary Care Physician Encounter [facility] Date(s): 08/21/21 - 08/28/21 [facility] [address] [place], [place] [address] Attending Physician: Ajit Anthony MD Allergies, Adverse [...] Comment: Patient tollerated well 2Result Comment: [03/14/2017] [facility] [id number] 3Result Comment: [06/19/2006] proquad Medications gabapentin 300 [...]
--- OUTSIDE RECORDS SUMMARY | 2022-08-27 05:15 | XMS_ITS | Continuity of Care Document ---
Author Name Unknown Organization [facility] Address [address] [place] [address]- Care Team Providers Care Inventory Assistant Name Role Phone Nadeem David MD Primary Care Physician Encounter [facility] Date(s): 01/30/19 - 02/07/20 [facility] [address] [place], [place] [address] Attending Physician: Nadeem David MD Allergies, Adverse Reactions, [...] Given 1Result Comment: [03/14/2017] [facility] [id number] 2Result Comment: [06/19/2006] proquad Problem List Condition Effective Dates Status Health Status Inform ant Migraine headache(Confirmed) Active Well child(Confirmed) Active Social History Social History Type Response Smoking Status Never smoker; Tobacc o user in household: No; Type: Cigarettes; Other: father smokes; entered on: 08/29/16 Sex
--- OUTSIDE RECORDS SUMMARY | 2022-08-27 05:15 | XMS_ITS | Continuity of Care Document ---
Author Name Unknown Organization [facility] Address [address] [place] [address]- Care Team Providers Care Silk Blocker Name Role Phone Ajit Anthony MD Primary Care Physician Encounter [facility] Date(s): 12/20/20 - 01/19/21 [facility] [address] [place], [place] [address] Allergies, Adverse Reactions, Alerts Substance Reaction Severity [...] pediatric vaccine 02 Given 1Result Comment: [03/14/2017] [facility] [id number] 2Result Comment: [06/19/2006] proquad Medications Colace sodium [...] 01/13/21 17:12:00 EDT, Route to Pharmacy Electronically, [facility]/pharmacy #[id number], Partial... Start Date: 01/13/21 Stop Date: 04/13/21 Status: Ordered oxyCODONE 5 mg oral tablet See Instructions, PRN, 1 tablet By Mouth in a.m, at noon, in early pm and 2 tablets at bedtime. Dx:pelvic fracture, # 70 tablet, Refills 0, Tot. Refills 0, Acute 02/13/21 12:14:00 EST, as needed forpain, 01/13/21 12:14:00 EDT, Instructions Replace... Start Date: 01/13/21 Stop Date: 02/13/21 Status: Ordered pantoprazole 40 mg oral delayed [...]
--- OUTSIDE RECORDS SUMMARY | 2022-08-27 05:15 | XMS_ITS | Continuity of Care Document ---
Author Name Unknown Organization [facility] Address [address] [place] [address]- Care Team Providers Care Social Media Senior Associate Name Role Phone Ajit Anthony MD Primary Care Physician Encounter [facility] Date(s): 04/24/21 - 05/24/21 [facility] [address] [place], [place] [address] Attending Physician: Kymberly Deshpande Admitting Physician: [...] Haemophilus B conjugate (HbOC) vaccine 02 Gi ekvin diphtheria/tetanus/pertussis, acel(DTaP) 06/21/03 Given diphtheria/tetanus/pertussis, acel(DTaP) 02 Given diphtheria/tetanus/pertussis, acel(DTaP) 02 Given diphtheria/tetanus/pertussis, acel(DTaP) 02 Given hepatitis B pediatric vaccine 02 Given hepatitis B pediatric vaccine 02 Given hepatitis B pediatric vaccine 02 Given 1Result Comment: Patient tollerated well 2Result Comment: [03/14/2017] [facility] [id number] 3Result Comment: [06/19/2006] proquad Medications gabapentin 300 [...]
--- OUTSIDE RECORDS SUMMARY | 2022-08-27 05:15 | XMS_ITS | Continuity of Care Document ---
Author Name Unknown Organization [facility] Address [address] [place] [address]- Care Team Providers Care Hotel Guest Service Agent Name Role Phone Raj GLOVER, Ajit Primary Care Physician Encounter [facility] Date(s): 04/24/21 - 10/12/[address] [address] Discharge Disposition: A-D/C Home Attending Physician: Ajit Anthony MD Admitting Physician: Ajit Anthony MD Referring Physician: Ajit Anthony MD Allergies, Adverse Reactions, [...] Comment: Patient tollerated well 2Result Comment: [03/14/2017] [facility] [id number] 3Result Comment: [06/19/2006] proquad Medications gabapentin 300 [...]
--- OUTSIDE RECORDS SUMMARY | 2022-08-27 05:15 | XMS_ITS | Continuity of Care Document ---
Author Name Unknown Organization [facility] Address [address] [place] [address]- Care Team Providers Care Oil Filters Inspector Name Role Phone Nadeem David MD Primary Care Physician Encounter [facility] Date(s): 09/18/20 - 09/18/[address] [address]- Discharge Disposition: A-D/C Walkout Attending Physician: Alan Bower MD Admitting Physician: Alan Bower MD Referring Physician: Not on Staff, Referring [...] pediatric vaccine 02 Given 1Result Comment: [03/14/2017] [facility] [id number] 2Result Comment: [06/19/2006] proquad Problem List Condition Effective Dates Status Health Status Inform ant Migraine headache(Confirmed) Active Well child(Confirmed) Active Vital Signs Most recent to oldest [Reference Range]: 1 2 Oxygen Saturation [94-100 %] 98 % (09/18/20 8:13 PM) 100 % (09/18/20 8:12 PM) Pulse Rate [55-90 bpm] 74 bpm (09/18/20 8:13 PM) 84 bpm (09/18/20 8:12 PM) Blood Pressure [71-110/30-71 mm Hg] 128/ 84mm Hg *H* (09/18/20 8:13 PM) Respiratory Rate [16-30 br/min] 16 br/mi n (09/18/20 8:13 PM) 16 br/min (09/18/20 8:12 PM) Temperature [96.8-100.4 DegF] 97.8 DegF (09/18/20 8:13 PM) Mode of Delivery (Oxygen) Room air (09/18/20 8:13 PM) Blood pressure sites Arm, right (09/18/20 8:13 PM) Temperature Route Oral (09/18/20 8:13 PM) Social History Social History Type Response Smoking Status Never smoker; Tobacc o user in household: No; Type: Cigarettes; Other: father smokes; entered on: 08/29/16 Sex
--- OUTSIDE RECORDS SUMMARY | 2022-08-27 05:15 | XMS_ITS | Continuity of Care Document ---
Author Name Unknown Organization [facility] Address [address] [place] [address]- Care Team Providers Care Work Order Clerk Name Role Phone Not on Staff, PCP Primary Care Physician Unavail able Encounter [facility] Date(s): 11/23/20 - 11/29/[address] [address]- Encounter Diagnosis Hip pain(Final) - 11/23/20 Discharge Disposition: Disch/Trans to IP Rehab or unit w/in Hos Attending Physician: Fox Bob MD Admitting Physician: Fox Bob MD Referring Physician: Not on Staff, Referring MD Allergies, Adverse Reactions, Alerts Substance Reaction Severity Status NKA Active Medications Colace sodium 100 mg oral capsule [...] drug. Start Date: 11/29/20 Status: Ordered gabapentin 100 mg oral capsule 100 mg, 1, capsule, By Mouth, 3 times a day, Refills 0, Maintenance, 11/29/20 16:38:00 EDT, Partialfill upon patient request if the prescription is for a schedule II opioid drug. Start Date: 11/29/20 Status: Ordered ibuprofen 800 mg oral tablet [...] Status: Ordered oxyCODONE 5 mg oral tablet 5 mg, 1, tablet, By Mouth, Every 4 hours, PRN, for 7 days, # 42 tablet, Refills 0, Tot. Refills 0, Acute 12/06/20 17:15:00 EDT, Pain , Severe, 11/29/20 17:15:00 EDT, Print Requisition, Partial fill upon patient request if the prescription is for a sarbjit... Start Date: 11/29/20 Stop Date: 12/06/20 Status: Ordered oxyCODONE 5 mg oral tablet 5 mg, Tablet, By Mouth, Every 4 hours, PRN for Pain , Severe, Routine, 11/23/20 18:36:00 EDT Start Date: 11/23/20 Stop Date: 11/30/20 Status: Ordered Senna 8.6 mg oral tablet [...] opioid drug. Start Date: 11/29/20 Status: Ordered Results Radiology Reports (Most Recent Ten) * Exam Date Time Procedure Performing Provider Status 11/25/20 10:38 AM C-Arm > 1 Hour Samir Lyn h (Verified) Notes: (C-Arm > 1 Hour) Reason For Exam: ORIF Pelvis RESULT: C-Arm > 1 Hour Pelvis Min 3 Views, C-Arm > 1 Hour INDICATION: ORIF Pelvis COMPARISONS: None TECHNIQUE: Fluoroscopy support was provided. There was no radiologist in attendance. Fluoroscopy time: 223.3 seconds Exposure: 227 mGy FINDINGS: Intraoperative fluoroscopy demonstrate screw fixation SI joints. Known sacral fractures are difficult to visualize. Pubic symphysis and pubic rami fractures are partially obscured by contrast in the bladder. Please refer to operative report for details. IMPRESSION: See above. WSN: [id number] Ordering Physician: Nikky Crane Dictated By: Olivier Perez MD Dictated Date/Time: 11/25/20 11:14 a Reviewed By: Olivier Perez MD Signed By: Olivier Perez MD Signed Date/Time: 11/25/20 11:14 am Transcribed By: CSEnoc Transcribed Date/Time: 11/25/20 11:09 am * Exam Date Time Procedure Performing Provider Status 11/25/20 10:38 AM Pelvis Min 3 Views Maxi Lyn; Auth (Verified) Notes: (Pelvis Min 3 Views) Reason For Exam: ORIF Pelvis RESULT: Pelvis Min 3 Views Pelvis Min 3 Views, C-Arm > 1 Hour INDICATION: ORIF Pelvis COMPARISONS: None TECHNIQUE: Fluoroscopy support was provided. There was no radiologist in attendance. Fluoroscopy time: 223.3 seconds Exposure: 227 mGy FINDINGS: Intraoperative fluoroscopy demonstrate screw fixation SI joints. Known sacral fractures are difficult to visualize. Pubic symphysis and pubic rami fractures are partially obscured by contrast in the bladder. Please refer to operative report for details. IMPRESSION: See above. WSN: [id number] Ordering Physician: Nikky Crane Dictated By: Olivier Perez MD Dictated Date/Time: 11/25/20 11:14 a Reviewed By: Olivier Perez MD Signed By: Olivier Perez MD Signed Date/Time: 11/25/20 11:14 am Transcribed By: CSEnoc Transcribed Date/Time: 11/25/20 11:09 am * Exam Date Time Procedure Performing Provider Status 11/24/20 1:20 PM C-Arm < 1 Hour Lavinia Carty; Auth (Verified) Notes: (C-Arm < 1 Hour) Reason For Exam: ORIF L foot RESULT: C-Arm < 1 Hour Foot Min 3 Views Left, C-Arm < 1 Hour INDICATION: Reason: ORIF L foot; Special Instructions: TT-30min, FT-7s COMPARISONS: None TECHNIQUE: Fluoroscopy support was provided. There was no radiologist in attendance. Fluoroscopy time: 6.6 seconds Technologist time: 30 minutes Exposure: 0.1818 mGy FINDINGS: Fluoroscopy support was provided. There was no radiologist in attendance. IMPRESSION: See above. WSN: [id number] Ordering Physician: Nikky Crane Dictated By: Jarek Loza MD Dictated Date/Time: 11/24/20 1:37 pm Reviewed By: Jarek Loza MD Signed By: Jarek Loza MD Signed Date/Time: 11/24/20 1:37 pm Transcribed By: CSEnoc Transcribed Date/Time: 11/24/20 1:36 pm * Exam Date Time Procedure Performing Provider Status 11/24/20 1:20 PM Foot Min 3 Views Left Lavinia Carty ; Auth (Verified) Notes: (Foot Min 3 Views Left) Reason For Exam: ORIF L foot RESULT: Foot Min 3 Views Left Foot Min 3 Views Left, C-Arm < 1 Hour INDICATION: Reason: ORIF L foot; Special Instructions: TT-30min, FT-7s COMPARISONS: None TECHNIQUE: Fluoroscopy support was provided. There was no radiologist in attendance. Fluoroscopy time: 6.6 seconds Technologist time: 30 minutes Exposure: 0.1818 mGy FINDINGS: Fluoroscopy support was provided. There was no radiologist in attendance. IMPRESSION: See above. WSN: [id number] Ordering Physician: Nikky Crane Dictated By: Jarek Loza MD Dictated Date/Time: 11/24/20 1:37 pm Reviewed By: Jarek Loza MD Signed By: Jarek Loza MD Signed Date/Time: 11/24/20 1:37 pm Transcribed By: DEX Transcribed Date/Time: 11/24/20 1:36 pm * Exam Date Time Procedure Performing Provider Status 11/23/20 10:31 PM Pelvis Min 3 Views Alan Pantoja; Catracho (Verified) Notes: (Pelvis Min 3 Views) Reason For Exam: inlet, outlet, judets;Pain RESULT: Pelvis Min 3 Views PROCEDURE: Pelvis Min 3 Views CLINICAL INDICATION: 20 years old Male with Reason: Pain; inlet, outlet, judets; Clinical Question(s): Fracture. COMPARISONS: None. FINDINGS: Bones and joints: Nondisplaced fractures in the left superior and inferior pubic rami. Widening of pubic symphysis measuring approximately 1.7 cm. The sacroiliac joints are symmetric without abnormalwidening. Known sacral fractures are obscured by overlying bowel gas and stool. Soft Tissues: Midline Nguyen catheter in place. IMPRESSION: 1. Nondisplaced left superior and inferior pubic rami fractures and separation of the pubic symphysis. 2. Known sacral fractures are obscured by overlying bowel gas and stool. Thank you for allowing me to participate in the care of this patient. WSN: [id number] Ordering Physician: Hali Talley Dictated By: Melonie Parisi MD Dictated Date/Time: 11/23/20 11:03 p Reviewed By: Melonie Parisi MD Signed By: Melonie Parisi MD Signed Date/Time: 11/23/20 11:03 pm Transcribed By: DEX Transcribed Date/Time: 11/23/20 11:00 pm * Exam Date Time Procedure Performing Provider Status 11/23/20 10:31 PM Foot Min 3 Views Left Efrem Pantoja ph; Auth (Verified) Notes: (Foot Min 3 Views Left) Reason For Exam: Deformity RESULT: Foot Min 3 Views Left PROCEDURE: Foot Min 3 Views Left CLINICAL INDICATION: 20 years old Male with Reason: Deformity; Clinical Question(s): Dislocation. COMPARISONS: None. FINDINGS: Bones and joints: Comminuted displaced fractures at the bases of second and third metatarsals with divergent Lisfranc injury. There is also disorganized appearance of the middle and lateral cuneiforms and cuboid but accurate assessment is difficult due to overlapping bones. Alignment of the medial c uneiform and first metatarsal is preserved. Soft Tissues: Diffuse soft tissue swelling. No evidence of radiopaque foreign body. IMPRESSION: 1. Comminuted displaced fractures at the bases of the second and third metatarsals with divergent Lisfranc injury. 2. Possible dislocation of the middle and lateral cuneiforms and cuboid. Fracture in the distal tarsal bones is difficult to exclude due to overlapping structures. Thank you for allowing me to participate in the care of this patient. WSN: [id number] Ordering Physician: Ida Traore Dictated By: Melonie Parisi MD Dictated Date/Time: 11/23/20 10:59 p Reviewed By: Melonie Parisi MD Signed By: Melonie Parisi MD Signed Date/Time: 11/23/20 10:59 pm Transcribed By: DEX Transcribed Date/Time: 11/23/20 10:53 pm * Exam Date Time Procedure Performing Provider Status 11/23/20 6:03 PM Knee 1 or 2 Views Right Milan Merchant le; Auth (Verified) Notes: (Knee 1 or 2 Views Right) Reason For Exam: with Pain;Trauma RESULT: Knee 1 or 2 Views Right Right knee 2 views dated November 23, 2020. No prior studies are available. HISTORY: Pain. FINDINGS: This examination shows no evidence of fracture or dislocation. Joint spaces are well preserved. No radiopaque foreign body or soft tissue gas is noted. No joint effusion is seen. IMPRESSION: Negative examination. Examination 09381. Thank you for allowing me to participate in the care of this patient. WSN: [id number] Ordering Physician: Srinivasa Cotter Dictated By: Jamie Sims MD Dictated Date/Time: 11/23/20 6:07 pm Reviewed By: Jamie Sims MD Signed By: Jamie Sims MD Signed Date/Time: 11/23/20 6:07 pm Transcribed By: DEX Transcribed Date/Time: 11/23/20 6:07 pm * Exam Date Time Procedure Performing Provider Status 11/23/20 6:03 PM Knee 1 or 2 Views Left Molly Merchant e; Auth (Verified) Notes: (Knee 1 or 2 Views Left) Reason For Exam: with Pain;Trauma RESULT: Knee 1 or 2 Views Left Left knee 2 views dated November 23, 2020. No prior studies are available. HISTORY: Pain. FINDINGS: This examination shows no evidence of fracture or dislocation. Joint spaces are well preserved. No radiopaque foreign body or soft tissue gas is noted. No joint effusion is seen. IMPRESSION: Negative examination. Examination 67722. Thank you for allowing me to participate in the care of this patient. WSN: [id number] Ordering Physician: Srinivasa Cotter Dictated By: Jamie Sims MD Dictated Date/Time: 11/23/20 6:09 pm Reviewed By: Jamie Sims MD Signed By: Jamie Sims MD Signed Date/Time: 11/23/20 6:09 pm Transcribed By: DEX Transcribed Date/Time: 11/23/20 6:07 pm * Exam Date Time Procedure Performing Provider Status 11/23/20 6:03 PM Shoulder Min 2 Views Right Víctor Merchant (Verified) Notes: (Shoulder Min 2 Views Right) Reason For Exam: with Pain;Trauma RESULT: Shoulder Min 2 Views Right Right shoulder 2 views dated November 23, 2020. No prior studies are available. HISTORY: Pain. FINDINGS: This examination shows no evidence of fracture or dislocation. Postoperative changes are noted with surgical anchors in the glenoid. IMPRESSION: No evidence of acute osseous abnormality. Postoperative changes. Examination 86588. Thank you for allowing me to participate in the care of this patient. WSN: [id number] Ordering Physician: Srinivasa Cotter Dictated By: Jamie Sims MD Dictated Date/Time: 11/23/20 6:09 pm Reviewed By: Jamie Sims MD Signed By: Jamie Sims MD Signed Date/Time: 11/23/20 6:09 pm Transcribed By: DEX Transcribed Date/Time: 11/23/20 6:06 pm * Exam Date Time Procedure Performing Provider Status 11/23/20 6:03 PM Ankle Min 3 Views Right Milan Merchant; Auth (Verified) Notes: (Ankle Min 3 Views Right) Reason For Exam: with Pain;Trauma RESULT: Ankle Min 3 Views Right Ankle Min 3 Views Right Reason: Trauma; with Pain; Clinical Question(s): Fracture. COMPARISON: None. FINDINGS: Lucency at the distal fibula. Otherwise, no evidence of fracture. Intact ankle mortise and talar dome. No arthritic changes. Mild soft tissue swelling about the ankle.. IMPRESSION: Lucency at the distal fibula may represent partial avulsion. Correlation with point tenderness at the lateral malleolus is recommended. WSN: [id number] Ordering Physician: Srinivasa Cotter Dictated By: Patrick Patel MD Dictated Date/Time: 11/23/20 6:08 pm Reviewed By: Patrick Patel MD Signed By: Patrick Patel MD Signed Date/Time: 11/23/20 6:08 pm Transcribed By: DEX Transcribed Date/Time: 11/23/20 6:05 pm Vital Signs Most recent to oldest [Reference Range]: 1 2 3 Height 176 cm (11/29/20 5:00 PM) 176 cm (11/29/20 12:30 PM) 176 cm (11/29/20 7:31 AM) Weight 79.9 kg (11/25/20 6:55 AM) 79.9 kg (11/24/20 10:18 AM) 79.9 kg (11/23/20 10:40 PM) Oxygen Saturation [94-100 %] 99 % (11/29/20 5:00 PM) 98 % (11/29/20 12:30 PM) 98 % (11/29/20 7:31 AM) Pulse Rate [55-90 bpm] 91 bpm *H* (11/29/20 12:30 PM) 107 bpm *H* (11/29/20 7:31 AM) 109 bpm *H* (11/29/20 4:20 AM) Body Mass Index [18.5-24.99] 25.79 *H* (11/25/20 6:55 AM) 25.79 *H* (11/24/20 10:18 AM) 25.79 *H* (11/23/20 10:40 PM) Blood Pressure [71-110/30-71 mm Hg] 119/71mm Hg *H* (11/29/20 5:00 PM) 122/63mm Hg *H* (11/29/20 12:30 PM) 112/57mm Hg *H* (11/29/20 7:31 AM) Respiratory Rate [16-30 br/min] 18 br/min (11/29/20 6:40 PM) 18 br/min (11/29/20 5:32 PM) 80 br/min *H* (11/29/20 5:00 PM) Temperature [96.8-100.4 DegF] 98.3 DegF (11/29/20 5:00 PM) 98.2 DegF (11/29/20 12:30 PM) 98.5 DegF (11/29/20 7:31 AM) Liters per Minute 6 L/min (11/25/20 10:45 AM) 6 L/min (11/24/20 2:00 PM) Mode of Delivery (Oxygen) Room air (11/29/20 5:00 PM) Room air (11/29/20 12:30 PM) Room air (11/29/20 7:31 AM) Blood pressure sites Arm, right (11/29/20 5:00 PM) Arm, right (11/29/20 12:30 PM) Arm, right (11/29/20 7:31 AM) Temperature Route Oral (11/29/20 5:00 PM) Axillary (11/29/20 12:30 PM) Oral (11/29/20 7:31 AM) Dry Weight 79.9 kg (11/23/20 10:40 PM) Weight Obtained Via Bed scale (11/23/20 10:40 PM) Dry Weight Obtained Via Bed scale (11/23/20 10:40 PM)
--- OUTSIDE RECORDS SUMMARY | 2022-08-27 05:15 | XMS_ITS | Continuity of Care Document ---
Author Name Unknown Organization [facility] Address [address] [place] [address]- Care Team Providers Care Real Estate Recruiter Name Role Phone Ajit Anthony MD Primary Care Physician [facility]counter [facility] Date(s): 01/02/21 - 02/01/[address] [facility] [address] [place], [place] [address] Allergies, Adverse Reactions, Alerts Substance Reaction Severity [...] Comment: Patient tollerated well 2Result Comment: [03/14/2017] [facility] [id number] 3Result Comment: [06/19/2006] proquad Medications Colace sodium [...] 01/13/21 17:12:00 EDT, Route to Pharmacy Electronically, [facility]/pharmacy #[id number], Partial... Start Date: [...]
--- OUTSIDE RECORDS SUMMARY | 2022-08-27 05:15 | XMS_ITS | Continuity of Care Document ---
Author Name Unknown Organization [facility] Address [address] [place] [address]- Care Team Providers Care Furniture Cleaner Name Role Phone Ajit Anthony MD Primary Care Physician Encounter [facility] Date(s): 06/19/21 - 07/19/21 [facility] [address] [place], [place] [address] Attending Physician: Dov Hartley MD [...] Comment: Patient tollerated well 2Result Comment: [03/14/2017] [facility] [id number] 3Result Comment: [06/19/2006] proquad Medications gabapentin 300 [...]
--- OUTSIDE RECORDS SUMMARY | 2022-08-27 05:15 | XMS_ITS | Continuity of Care Document ---
Author Name Unknown Organization [facility] Address Unknown Care Team Providers Care Ticket Collector Name Role Phone Ajit Anthony MD Primary Care Physician Encounter [facility] Date(s): 12/07/20 - 01/06/21 [facility] Attending Physician: Kymberly Deshpande Admitting [...] pediatric vaccine 02 Given 1Result Comment: [03/14/2017] [facility] [id number] 2Result Comment: [06/19/2006] proquad Medications Colace sodium [...]
--- OUTSIDE RECORDS SUMMARY | 2022-08-27 05:15 | XMS_ITS | Continuity of Care Document ---
Author Name Unknown Organization [facility] Address [address] [place] [address]- Care Team Providers Care Dragline Mechanic Name Role Phone Ajit Anthony MD Primary Care Physician Encounter [facility] Date(s): 05/08/21 - 06/07/[address] [address] Attending Physician: Kymberly Deshpande Admitting [...] Comment: Patient tollerated well 2Result Comment: [03/14/2017] [facility][NOTE 3] [id number] 3Result Comment: [06/19/2006] proquad Medications gabapentin 300 [...]
--- OUTSIDE RECORDS SUMMARY | 2022-08-27 05:16 | XMS_ITS | Continuity of Care Document ---
Author Name Unknown Organization [facility] Address [address] [place] [address]- Care Team Providers Care Banana Grader Name Role Phone Ajit Anthony MD Primary Care Physician Encounter [facility] Date(s): 04/24/21 - 05/01/21 [facility] [address] [place], [place] [address] Encounter Diagnosis Closed pelvic fracture (left superior pubc ramus and inferior pubic ramus fractures)(Discharge Diagnosis) - 04/24/21 Attending Physician: Ajit Anthony MD Allergies, Adverse [...] Comment: Patient tollerated well 2Result Comment: [03/14/2017] [facility] [id number] 3Result Comment: [06/19/2006] proquad Medications gabapentin 300 [...] delayed healing(Confirmed) 11/23/20 Active Migraine headache(Confirmed) Active Diagnosis Diagnosis Type Effective Dates Health Status Cl inical Service Informant Closed pelvic fracture (left superior pubc ramus and inferior pubic ramus fractures) Discharge Diagnosis 04/24/21 Social History Social History Type Response Smoking Status Never smoker; Tobacc o user in household: No; Type: Cigarettes; Other: father smokes; entered on: 08/29/16 Sex
--- OUTSIDE RECORDS SUMMARY | 2022-08-27 05:16 | XMS_ITS | Continuity of Care Document ---
Author Name Unknown Organization [facility] Address Unknown Care Team Providers Care Artificial Flowers Dyer Name Role Phone Ajit Anthony MD Primary Care Physician Encounter [facility] Date(s): 12/06/20 - 01/06/21 [facility] Attending Physician: Claudia CHAMPION MD, Matt T Allergies, Adverse Reactions, Alerts Substance Reaction Severity [...] pediatric vaccine 02 Given 1Result Comment: [03/14/2017] [facility] [id number] 2Result Comment: [06/19/2006] proquad Medications Colace sodium [...]
--- OUTSIDE RECORDS SUMMARY | 2022-08-27 05:16 | XMS_ITS | Continuity of Care Document ---
Author Name Unknown Organization [facility] Address [address] [place] [address]- Care Team Providers Care Curriculum Designer Name Role Phone Ajit Anthony MD Primary Care Physician En[place] [facility] Date(s): 01/24/21 - 03/30/21 [facility] [address] [place], [place] [address] Attending Physician: Ajit Anthony MD Allergies, Adverse [...] Patient tollerated well 2Result Comment: [03/14/2017] [facility] [id number] 3Result Comment: [06/19/2006] proquad Medications Colace sodium [...] 01/13/21 17:12:00 EDT, Route to Pharmacy Electronically, [facility]/pharmacy #[id number], Partial... Start Date: 01/13/21 Stop [...]
--- OUTSIDE RECORDS SUMMARY | 2022-08-27 05:16 | XMS_ITS | Continuity of Care Document ---
Author Name Unknown Organization [facility] Address [address] [place] [address]- Care Team Providers Care Buttermaker Helper Name Role Phone Ajit Anthony MD Primary Care Physician Encounter [facility] Date(s): 06/21/21 - 07/21/21 [facility] [address] [place], [place] [address] Attending Physician: Kymberly Deshpande Admitting [...] Patient tollerated well 2Result Comment: [03/14/2017] [facility] [id number] 3Result Comment: [06/19/2006] proquad Medications gabapentin 300 [...]
--- OUTSIDE RECORDS SUMMARY | 2022-08-27 05:16 | XMS_ITS | Continuity of Care Document ---
Author Name Unknown Organization [facility] Address [address] [place] [address]- Care Team Providers Care Grinder Hand Name Role Phone Ajit Anthony MD Primary Care Physician En[place] [facility] [place](s[place] 01/24/21 - 01/31/21 [facility] [address] [place], [place] [address] Encounter Diagnosis Closed pelvic fracture (left superior pubc ramus and inferior pubic ramus fractures)(Discharge Diagnosis) - 01/24/21 Displaced fracture of 3rd and 4th metatarsal bone of left foot with delayed healing(Discharge Diagnosis) - 01/24/21 Scrotal pain(Discharge Diagnosis) - 01/24/21 Pain in the penis(Discharge Diagnosis) - 01/24/21 Attending Physician: Ajit Anthony MD Allergies, Adverse [...] Comment: Patient tollerated well 2Result Comment: [03/14/2017] [facility] [id number] 3Result Comment: [06/19/2006] proquad Medications Colace sodium [...] 01/13/21 17:12:00 EDT, Route to Pharmacy Electronically, [facility]/pharmacy #[id number], Partial... Start Date: 01/13/21 Stop Date: [...] Diagnosis Diagnosis Type Effective Dates Health Status Clinical Service Informant Closed pelvic fracture (left superior pubc ramus and inferior pubic ramus fractures) Discharge Diagnosis 01/24/21 Displaced fracture of 3rd and 4th metatarsal bone of left foot with delayed healing Discharge Diagnosis 01/24/21 Scrotal pain Discharge Diagnosis 01/24/21 Pain in the penis Discharge Diagnosis 01/24/21 Vital Signs Most recent to oldest [Reference Range]: 1 Height 176 cm (01/24/21 3:34 PM) Oxygen Saturation [94-100 %] 98 % (01/24/21 3:34 PM) Pulse Rate [55-90 bpm] 133 bpm *H* (01/24/21 3:34 PM) Blood Pressure [71-110/30-71 mm Hg] 124/ 100mm Hg *H* (01/24/21 3:34 PM) Temperature [96.8-100.4 DegF] 98.3 DegF (01/24/21 3:34 PM) Mode of Delivery (Oxygen) Room air (01/24/21 3:34 PM) Blood pressure sites Arm, left (01/24/21 3:34 PM) Temperature Route Temporal (01/24/21 3:34 PM) Social History Social History Type Response Smoking Status Never smoker; Tobacc o user in household: No; Type: Cigarettes; Other: father smokes; entered on: 08/29/16 Sex
--- OUTSIDE RECORDS SUMMARY | 2022-08-27 05:16 | XMS_ITS | Continuity of Care Document ---
Author Name Unknown Organization [facility] Address [address] [place] [address]- Care Team Providers Care Tax Evaluator Name Role Phone Ajit Anthony MD Primary Care Physician Encounter [facility] Date(s): 01/03/21 - 02/02/21 [facility] [address] [place], [place] [address] Allergies, Adverse Reactions, Alerts Substance Reaction [...] Patient tollerated well 2Result Comment: [03/14/2017] [facility] [id number] 3Result Comment: [06/19/2006] proquad Medications Colace sodium [...] 01/13/21 17:12:00 EDT, Route to Pharmacy Electronically, [facility]/pharmacy #[id number], Partial... Start Date: [...]
--- OUTSIDE RECORDS SUMMARY | 2022-08-27 05:16 | XMS_ITS | Continuity of Care Document ---
Author Name Unknown Organization [facility] Address [address] [place] [address]- Care Team Providers Care Supervisor [employer] Name Role Phone Nadeem David MD Primary Care Physician Encounter [facility] Date(s): 09/06/19 - 10/06/19 [facility] [address] [place] [address]- [facility] Attending Physician: Kymberly Deshpande Admitting Physician: AdmtrKymberly Referring Physician: Admtr, Ar8 Allergies, Adverse Reactions, Alerts Substance Reaction Severity [...] pediatric vaccine 02 Given 1Result Comment: [03/14/2017] [facility] [id number] 2Result Comment: [06/19/2006] proquad Problem List Condition Effective Dates Status Health Status Inform ant Migraine headache(Confirmed) Active Well child(Confirmed) Active Social History Social History Type Response Smoking Status Never smoker; Tobacc o user in household: No; Type: Cigarettes; Other: father smokes; entered on: 08/29/16 Sex
== END 2022-08-27 05:16 | disposition home or self-care (01) ==
LOC: HO.ED 05:13
PROVIDERS: Emergency Provider Student in an Organized Health Care Education/Training Program
DX: L23.7 Allergic contact dermatitis due to plants, except food (principal)
CPT/HCPCS: 99283; 99284

== ENCOUNTER 2022-12-12 15:15 | Emergency (ER) | payer OTHER, SELFPAY ==
--- NOTE | ~2022-12-12 | CT_ITS ---
EXAMINATION: CT ABDOMEN AND PELVIS WITH CONTRAST CLINICAL INFORMATION: Pancreatitis COMPARISON: None available. TECHNIQUE: Multidetector volumetric images were obtained from the superior aspect of the liver through the pubic symphysis following administration 85 mL of Omnipaque 350 intravenous contrast. Sagittal and coronal reformatted images were obtained on the technologist's workstation. Oral contrast: Yes This CT examination was performed using dose optimization techniques as appropriate, variously including the following: *Automated exposure control *Adjustment of mA and/or kV according to patient size (this includes techniques or standardized protocols for targeted exams where dose is matched to indication/reason for exam; i.e. extremities or head) *Use of iterative reconstruction technique DLP: 383 mGy-cm FINDINGS: LUNG BASES: The visualized lung bases are unremarkable. LIVER, GALLBLADDER, AND BILIARY TREE: The liver is normal in size, shape, and attenuation. No focal hepatic lesion or biliary ductal dilatation is present. The gallbladder is unremarkable with no evidence of radiopaque gallstones, gallbladder wall thickening, or obvious pericholecystic inflammatory changes. PANCREAS: There is thickening of the tail the pancreas measuring 2 cm in AP dimension. Pancreas is otherwise unremarkable. SPLEEN: Unremarkable. ADRENAL GLANDS: Unremarkable. KIDNEYS AND URETERS: The kidneys are normal in size, shape, and attenuation. No hydronephrosis, hydroureter, or calculi seen. No perinephric stranding. BLADDER: Unremarkable. GASTROINTESTINAL TRACT: The small and large bowel are unremarkable. The appendix is unremarkable. ABDOMINAL WALL: No significant hernia is appreciated. LYMPH NODES: Small, small bowel mesentery and retroperitoneal lymph nodes. No enlarged lymph nodes. No ascites. VASCULAR: Unremarkable. PELVIC VISCERA: Unremarkable. OSSEOUS STRUCTURES: There is old trauma to the pubic symphysis. There is a [id number] screw in the pelvis across the bilateral sacroiliac joints. CT/CT abdomen pelvis w IV con IMPRESSION: Increased size or thickening of the tail the pancreas. The pancreas is otherwise normal. Evidence of old trauma to the pelvis. Fleischner guidelines were followed.
[2022-12-12 15:19] VITALS: BP 131/77; PULSE 88; RESP 16; TEMP 36.6; O2SAT 98; BMI 22.4
--- NOTE | 2022-12-12 15:21 | ED_ITS ---
HPI - General Adult General Chief complaint: Abdominal Pain Stated complaint: back pain, stomach pain. no appetite Time Seen by Provider: 12/12/22 18:03 Source: patient Mode of arrival: ambulatory Limitations: no limitations History of Present Illness HPI narrative: Patient with no significant past medical history drinks alcohol occasionally comes here for upper abdominal pain started yesterday evening was earlier today with nausea radiating to the back no fever no chills never had similar history in the past also complaining of dysuria for last few days denies any history of kidney stones or gallstones no fever no chills Related Data Previous Rx's Medication Instructions Recorded prednisone 5 mg tablet 5 mg PO DAILY #4 tabs 08/27/22 doxycycline hyclate 100 mg tablet 100 mg PO BID #14 tabs 12/12/22 ondansetron 4 mg disintegrating 4 mg PO Q6-8H PRN nausea and 12/12/22 tablet vomiting #7 tabs oxycodone 5 mg tablet 5 mg PO Q6H PRN pain #20 tabs 12/12/22 Allergies Allergy/AdvReac Type Severity Reaction Status Date / Time No Known Allergies Allergy Verified 08/27/22 04:43 Review of Systems 2 Review of Systems: Yes all other systems are reviewed and are negative PMFSH Social History Social History Alcohol intake: current Advance Directives: No Advance Directives Information Provided: Yes Physical Exam ED Vital Signs: Vital Signs - 24 hr 12/12/22 15:19 12/12/22 16:00 12/12/22 20:09 Temperature 97.8 F 98.4 F Pulse Rate 88 78 62 Respiratory Rate 16 16 18 Blood Pressure 131/77 132/60 99/47 L Pulse Oximetry 98 99 98 Oxygen Delivery Method Room Air Room Air Room Air BMI result Body Mass Index 22.4 Appearance: Alert. Oriented X3. No acute distress. Eyes: PERRLA, No Nystagmus ENT: Pharynx normal. Oral Mucosa moist Neck: Normal inspection. Neck supple. CVS: Normal heart rate and rhythm. Pulses normal. Respiratory: No respiratory distress. Equal air entry bilateral, no wheezing/rales/rhonchi Abdomen: Soft, depends epigastric area. Bowel sounds are present, no mass palpable, no CVA tenderness Skin: Skin warm and dry. Normal skin color. Normal skin turgor. Extremities: No lower extremity edema. No calf tenderness Neuro: Oriented X 3. No motor deficit. No sensory deficit.No cerebellar signs , cranial nerves II-XII intact Course Course Course Narrative: RME- 22 year old male presents for evaluation of left lower back pain that radiates to his lower abdomen. Pain is sharp. Reports I have to push a little harder than normal to pee. Plan for labs, UA, CT/NG Medications Administered Discontinued Medications Generic Name Dose Route Start Last Admin Trade Name Christiano PRN Reason Stop Dose Admin Doxycycline Monohydrate 100 mg 12/12/22 18:12/12/22 18:18 Doxycycline Monohydrate 100 Mg Capsule PO 12/12/22 18:10 100 mg ONCE ONE Administration Sodium Chloride 1,000 mls @ 999 mls/hr 12/12/22 18:08 12/12/22 20:32 Ns IV 12/12/22 19:08 Infused .Q1H1M ONE Infusion Iohexol 100 ml 12/12/22 19:30 12/12/22 19:30 Iohexol 350 Mg/Ml 100 Ml Infus..Btl IV 12/12/22 19:31 85 ml ONCE ONE Administration Ketorolac Tromethamine 30 mg 12/12/22 18:08 12/12/22 18:18 Ketorolac Tromethamine 30 Mg/Ml Vial IVPUSH 12/12/22 18:09 30 mg ONCE ONE Administration Morphine Sulfate 4 mg 12/12/22 18:23 12/12/22 19:01 Morphine Sulfate 4 Mg/Ml Cartridge IVPUSH 12/12/22 18:24 4 mg ONCE ONE Administration Protocol Ondansetron HCl 4 mg 12/12/22 18:08 12/12/22 18:18 Ondansetron Hcl 4 Mg/2 Ml Vial IVPUSH 12/12/22 18:09 4 mg ONCE ONE Administration Medical Decision Making Medical Decision Making MDM Narrative: Patient's acute pancreatitis etiology not very clear possible idiopathic also has chlamydia infection patient was given doxycycline for chlamydia infection feels much better after pain Taking p.o. fluids discharge patient home for uncomplicated pancreatitis and UTI Patient's partner was treated for chlamydia infection also Differential Diagnosis Differential Diagnoses: The differential diagnosis associated with the presentation includes Gastritis/cholecystitis/kidney stone /pancreatitis/ Admission/Observation Consideration of admission/observation: Escalation of care including admission/observation considered Lab Data MDM Lab Attestation statement: I reviewed the patient's lab results. 12/12/22 15:31 12/12/22 15:31 Labs: Lab Results 12/12/22 12/12/22 12/12/22 Range/Units 15:31 15:31 15:31 WBC 11.8 H (4.8-10.8) X10*3/uL RBC 4.67 (4.60-5.80) X10*6/uL Hgb 14.0 (14.0-18.0) g/dl Hct 41.9 L (42.0-52.0) % MCV 89.7 (80.0-98.0) fL MCH 30.0 (27.0-33.0) pg MCHC 33.4 (31.0-36.0) g/dl RDW 13.2 (11.0-16.0) % Plt Count 206 (160-400) X10*3/uL MPV 10.0 (9.4-12.4) fL Immature Gran % (Auto) 0.4 (0.0-0.4) % Neut % (Auto) 82.7 H (45-73) % Lymph % (Auto) 9.8 L (20-40) % [place] % (Auto) 5.8 (2-11) % Eos % (Auto) 1.0 (0-4) % Baso % (Auto) 0.3 (0-2) % Lymph # (Auto) 1.2 (1.2-4.9) X10*3/uL [place] # (Auto) 0.7 (0.1-1.2) X10*3/uL Eos # (Auto) 0.1 (0.0-0.4) X10*3/uL Baso # (Auto) 0.0 (0.0-0.2) X10*3/uL Abs Immat Gran (auto) 0.05 H (0.00-0.03) X10*3/uL Absolute Neuts (auto) 9.8 H (2.0-8.3) x10*3/uL Absolute Nucleated RBC 0.000 (0.0-0.012) X10*3/uL Nucleated RBC % (auto) 0.0 (0.0-0.2) /100WBC Sodium 138 (135-145) mmol/L Potassium 4.2 (3.3-5.1) mmol/L Chloride 105 (96-108) mmol/L Carbon Dioxide 26 (22-29) mmol/L Anion Gap 11 L (12-20) BUN 10 (9-16) mg/dL Creatinine 0.93 (0.5-1.4) mg/dL Estim Creat Clear Calc 123.2 Estimated GFR > 60 Random Glucose 92 (60-115) mg/dL Calcium 10.2 (8.4-10.2) mg/dL Total Bilirubin 0.7 (0.0-1.0) mg/dL AST 16 (5-37) U/L ALT 10 (0-40) U/L Alkaline Phosphatase 89 (39-117) U/L Total Protein 8.0 (6.5-8.0) g/dL Albumin 5.0 (3.5-5.0) g/dL Triglycerides 40 (<150) mg/dL Lipase 230 H (8-78) U/L Urine Color Yellow Cancelled Urine Appearance Clear Cancelled Urine pH 8.5 (5.0-9.0) Ur Specific [place] (1.005-1.025) Urine Protein (Neg-Trace) mg/dL Urine Glucose (UA) (Negative) mg/dL Urine Ketones (Negative) mg/dL Urine Blood (Negative) Urine Nitrite (Negative) Ur Leukocyte Esterase (Negative) Urine RBC (0-2) /HPF Urine WBC (0-5) /HPF Urine WBC Clumps Ur Squamous Epith Cells (0-2) /HPF Ur Transition Epith Cell Ur Renal Epithelial Cell Calcium Oxalate Crystal Leucine Crystals Cystine Crystals Tyrosine Crystals Other Crystals Urine Bacteria (None Seen) Urine Parasites Bilirubin Casts Epithelial Casts Fatty Casts Hyaline Casts (0-2) /LPF Granular Casts Waxy Casts Broad Casts RBC Casts WBC Casts Other Casts Urine Trichomonas Urine Yeast Chlam trachomat DNA PCR (Not Detect.) N.gonorrhoeae DNA (PCR) (Not Detect.) 12/12/22 12/12/22 12/12/22 Range/Units 15:31 15:31 15:31 WBC (4.8-10.8) X10*3/uL RBC (4.60-5.80) X10*6/uL Hgb (14.0-18.0) g/dl Hct (42.0-52.0) % MCV (80.0-98.0) fL MCH (27.0-33.0) pg MCHC (31.0-36.0) g/dl RDW (11.0-16.0) % Plt Count (160-400) X10*3/uL MPV (9.4-12.4) fL Immature Gran % (Auto) (0.0-0.4) % Neut % (Auto) (45-73) % Lymph % (Auto) (20-40) % [place] % (Auto) (2-11) % Eos % (Auto) (0-4) % Baso % (Auto) (0-2) % Lymph # (Auto) (1.2-4.9) X10*3/uL [place] # (Auto) (0.1-1.2) X10*3/uL Eos # (Auto) (0.0-0.4) X10*3/uL Baso # (Auto) (0.0-0.2) X10*3/uL Abs Immat Gran (auto) (0.00-0.03) X10*3/uL Absolute Neuts (auto) (2.0-8.3) x10*3/uL Absolute Nucleated RBC (0.0-0.012) X10*3/uL Nucleated RBC % (auto) (0.0-0.2) /100WBC Sodium (135-145) mmol/L Potassium (3.3-5.1) mmol/L Chloride (96-108) mmol/L Carbon Dioxide (22-29) mmol/L Anion Gap (12-20) BUN (9-16) mg/dL Creatinine (0.5-1.4) mg/dL Estim Creat Clear Calc Estimated GFR Random Glucose (60-115) mg/dL Calcium (8.4-10.2) mg/dL Total Bilirubin (0.0-1.0) mg/dL AST (5-37) U/L ALT (0-40) U/L Alkaline Phosphatase (39-117) U/L Total Protein (6.5-8.0) g/dL Albumin (3.5-5.0) g/dL Triglycerides (<150) mg/dL Lipase (8-78) U/L Urine Color Urine Appearance Urine pH Cancelled (5.0-9.0) Ur Specific [place] 1.020 Cancelled (1.005-1.025) Urine Protein Negative Cancelled (Neg-Trace) mg/dL Urine Glucose (UA) Negative (Negative) mg/dL Urine Ketones (Negative) mg/dL Urine Blood (Negative) Urine Nitrite (Negative) Ur Leukocyte Esterase (Negative) Urine RBC (0-2) /HPF Urine WBC (0-5) /HPF Urine WBC Clumps Ur Squamous Epith Cells (0-2) /HPF Ur Transition Epith Cell Ur Renal Epithelial Cell Calcium Oxalate Crystal Leucine Crystals Cystine Crystals Tyrosine Crystals Other Crystals Urine Bacteria (None Seen) Urine Parasites Bilirubin Casts Epithelial Casts Fatty Casts Hyaline Casts (0-2) /LPF Granular Casts Waxy Casts Broad Casts RBC Casts WBC Casts Other Casts Urine Trichomonas Urine Yeast Chlam trachomat DNA PCR (Not Detect.) N.gonorrhoeae DNA (PCR) (Not Detect.) 12/12/22 12/12/22 12/12/22 Range/Units 15:31 15:31 15:31 WBC (4.8-10.8) X10*3/uL RBC (4.60-5.80) X10*6/uL Hgb (14.0-18.0) g/dl Hct (42.0-52.0) % MCV (80.0-98.0) fL MCH (27.0-33.0) pg MCHC (31.0-36.0) g/dl RDW (11.0-16.0) % Plt Count (160-400) X10*3/uL MPV (9.4-12.4) fL Immature Gran % (Auto) (0.0-0.4) % Neut % (Auto) (45-73) % Lymph % (Auto) (20-40) % [place] % (Auto) (2-11) % Eos % (Auto) (0-4) % Baso % (Auto) (0-2) % Lymph # (Auto) (1.2-4.9) X10*3/uL [place] # (Auto) (0.1-1.2) X10*3/uL Eos # (Auto) (0.0-0.4) X10*3/uL Baso # (Auto) (0.0-0.2) X10*3/uL Abs Immat Gran (auto) (0.00-0.03) X10*3/uL Absolute Neuts (auto) (2.0-8.3) x10*3/uL Absolute Nucleated RBC (0.0-0.012) X10*3/uL Nucleated RBC % (auto) (0.0-0.2) /100WBC Sodium (135-145) mmol/L Potassium (3.3-5.1) mmol/L Chloride (96-108) mmol/L Carbon Dioxide (22-29) mmol/L Anion Gap (12-20) BUN (9-16) mg/dL Creatinine (0.5-1.4) mg/dL Estim Creat Clear Calc Estimated GFR Random Glucose (60-115) mg/dL Calcium (8.4-10.2) mg/dL Total Bilirubin (0.0-1.0) mg/dL AST (5-37) U/L ALT (0-40) U/L Alkaline Phosphatase (39-117) U/L Total Protein (6.5-8.0) g/dL Albumin (3.5-5.0) g/dL Triglycerides (<150) mg/dL Lipase (8-78) U/L Urine Color Urine Appearance Urine pH (5.0-9.0) Ur Specific [place] (1.005-1.025) Urine Protein (Neg-Trace) mg/dL Urine Glucose (UA) Cancelled (Negative) mg/dL Urine Ketones Negative Cancelled (Negative) mg/dL Urine Blood Negative Cancelled (Negative) Urine Nitrite Negative (Negative) Ur Leukocyte Esterase (Negative) Urine RBC (0-2) /HPF Urine WBC (0-5) /HPF Urine WBC Clumps Ur Squamous Epith Cells (0-2) /HPF Ur Transition Epith Cell Ur Renal Epithelial Cell Calcium Oxalate Crystal Leucine Crystals Cystine Crystals Tyrosine Crystals Other Crystals Urine Bacteria (None Seen) Urine Parasites Bilirubin Casts Epithelial Casts Fatty Casts Hyaline Casts (0-2) /LPF Granular Casts Waxy Casts Broad Casts RBC Casts WBC Casts Other Casts Urine Trichomonas Urine Yeast Chlam trachomat DNA PCR (Not Detect.) N.gonorrhoeae DNA (PCR) (Not Detect.) 12/12/22 12/12/22 12/12/22 Range/Units 15:31 15:31 15:31 WBC (4.8-10.8) X10*3/uL RBC (4.60-5.80) X10*6/uL Hgb (14.0-18.0) g/dl Hct (42.0-52.0) % MCV (80.0-98.0) fL MCH (27.0-33.0) pg MCHC (31.0-36.0) g/dl RDW (11.0-16.0) % Plt Count (160-400) X10*3/uL MPV (9.4-12.4) fL Immature Gran % (Auto) (0.0-0.4) % Neut % (Auto) (45-73) % Lymph % (Auto) (20-40) % [place] % (Auto) (2-11) % Eos % (Auto) (0-4) % Baso % (Auto) (0-2) % Lymph # (Auto) (1.2-4.9) X10*3/uL [place] # (Auto) (0.1-1.2) X10*3/uL Eos # (Auto) (0.0-0.4) X10*3/uL Baso # (Auto) (0.0-0.2) X10*3/uL Abs Immat Gran (auto) (0.00-0.03) X10*3/uL Absolute Neuts (auto) (2.0-8.3) x10*3/uL Absolute Nucleated RBC (0.0-0.012) X10*3/uL Nucleated RBC % (auto) (0.0-0.2) /100WBC Sodium (135-145) mmol/L Potassium (3.3-5.1) mmol/L Chloride (96-108) mmol/L Carbon Dioxide (22-29) mmol/L Anion Gap (12-20) BUN (9-16) mg/dL Creatinine (0.5-1.4) mg/dL Estim Creat Clear Calc Estimated GFR Random Glucose (60-115) mg/dL Calcium (8.4-10.2) mg/dL Total Bilirubin (0.0-1.0) mg/dL AST (5-37) U/L ALT (0-40) U/L Alkaline Phosphatase (39-117) U/L Total Protein (6.5-8.0) g/dL Albumin (3.5-5.0) g/dL Triglycerides (<150) mg/dL Lipase (8-78) U/L Urine Color Urine Appearance Urine pH (5.0-9.0) Ur Specific [place] (1.005-1.025) Urine Protein (Neg-Trace) mg/dL Urine Glucose (UA) (Negative) mg/dL Urine Ketones (Negative) mg/dL Urine Blood (Negative) Urine Nitrite Cancelled (Negative) Ur Leukocyte Esterase Trace H Cancelled (Negative) Urine RBC 0-2 Cancelled (0-2) /HPF Urine WBC 11-20 H (0-5) /HPF Urine WBC Clumps Ur Squamous Epith Cells (0-2) /HPF Ur Transition Epith Cell Ur Renal Epithelial Cell Calcium Oxalate Crystal Leucine Crystals Cystine Crystals Tyrosine Crystals Other Crystals Urine Bacteria (None Seen) Urine Parasites Bilirubin Casts Epithelial Casts Fatty Casts Hyaline Casts (0-2) /LPF Granular Casts Waxy Casts Broad Casts RBC Casts WBC Casts Other Casts Urine Trichomonas Urine Yeast Chlam trachomat DNA PCR (Not Detect.) N.gonorrhoeae DNA (PCR) (Not Detect.) 12/12/22 12/12/22 12/12/22 Range/Units 15:31 15:31 15:31 WBC (4.8-10.8) X10*3/uL RBC (4.60-5.80) X10*6/uL Hgb (14.0-18.0) g/dl Hct (42.0-52.0) % MCV (80.0-98.0) fL MCH (27.0-33.0) pg MCHC (31.0-36.0) g/dl RDW (11.0-16.0) % Plt Count (160-400) X10*3/uL MPV (9.4-12.4) fL Immature Gran % (Auto) (0.0-0.4) % Neut % (Auto) (45-73) % Lymph % (Auto) (20-40) % [place] % (Auto) (2-11) % Eos % (Auto) (0-4) % Baso % (Auto) (0-2) % Lymph # (Auto) (1.2-4.9) X10*3/uL [place] # (Auto) (0.1-1.2) X10*3/uL Eos # (Auto) (0.0-0.4) X10*3/uL Baso # (Auto) (0.0-0.2) X10*3/uL Abs Immat Gran (auto) (0.00-0.03) X10*3/uL Absolute Neuts (auto) (2.0-8.3) x10*3/uL Absolute Nucleated RBC (0.0-0.012) X10*3/uL Nucleated RBC % (auto) (0.0-0.2) /100WBC Sodium (135-145) mmol/L Potassium (3.3-5.1) mmol/L Chloride (96-108) mmol/L Carbon Dioxide (22-29) mmol/L Anion Gap (12-20) BUN (9-16) mg/dL Creatinine (0.5-1.4) mg/dL Estim Creat Clear Calc Estimated GFR Random Glucose (60-115) mg/dL Calcium (8.4-10.2) mg/dL Total Bilirubin (0.0-1.0) mg/dL AST (5-37) U/L ALT (0-40) U/L Alkaline Phosphatase (39-117) U/L Total Protein (6.5-8.0) g/dL Albumin (3.5-5.0) g/dL Triglycerides (<150) mg/dL Lipase (8-78) U/L Urine Color Urine Appearance Urine pH (5.0-9.0) Ur Specific [place] (1.005-1.025) Urine Protein (Neg-Trace) mg/dL Urine Glucose (UA) (Negative) mg/dL Urine Ketones (Negative) mg/dL Urine Blood (Negative) Urine Nitrite (Negative) Ur Leukocyte Esterase (Negative) Urine RBC (0-2) /HPF Urine WBC Cancelled (0-5) /HPF Urine WBC Clumps Cancelled Ur Squamous Epith Cells 0-2 Cancelled (0-2) /HPF Ur Transition Epith Cell Cancelled Ur Renal Epithelial Cell Cancelled Calcium Oxalate Crystal Cancelled Leucine Crystals Cancelled Cystine Crystals Cancelled Tyrosine Crystals Cancelled Other Crystals Cancelled Urine Bacteria None Seen Cancelled (None Seen) Urine Parasites Cancelled Bilirubin Casts Cancelled Epithelial Casts Cancelled Fatty Casts Cancelled Hyaline Casts 0-2 (0-2) /LPF Granular Casts Waxy Casts Broad Casts RBC Casts WBC Casts Other Casts Urine Trichomonas Urine Yeast Chlam trachomat DNA PCR (Not Detect.) N.gonorrhoeae DNA (PCR) (Not Detect.) 12/12/22 Range/Units 15:31 WBC (4.8-10.8) X10*3/uL RBC (4.60-5.80) X10*6/uL Hgb (14.0-18.0) g/dl Hct (42.0-52.0) % MCV (80.0-98.0) fL MCH (27.0-33.0) pg MCHC (31.0-36.0) g/dl RDW (11.0-16.0) % Plt Count (160-400) X10*3/uL MPV (9.4-12.4) fL Immature Gran % (Auto) (0.0-0.4) % Neut % (Auto) (45-73) % Lymph % (Auto) (20-40) % [place] % (Auto) (2-11) % Eos % (Auto) (0-4) % Baso % (Auto) (0-2) % Lymph # (Auto) (1.2-4.9) X10*3/uL [place] # (Auto) (0.1-1.2) X10*3/uL Eos # (Auto) (0.0-0.4) X10*3/uL Baso # (Auto) (0.0-0.2) X10*3/uL Abs Immat Gran (auto) (0.00-0.03) X10*3/uL Absolute Neuts (auto) (2.0-8.3) x10*3/uL Absolute Nucleated RBC (0.0-0.012) X10*3/uL Nucleated RBC % (auto) (0.0-0.2) /100WBC Sodium (135-145) mmol/L Potassium (3.3-5.1) mmol/L Chloride (96-108) mmol/L Carbon Dioxide (22-29) mmol/L Anion Gap (12-20) BUN (9-16) mg/dL Creatinine (0.5-1.4) mg/dL Estim Creat Clear Calc Estimated GFR Random Glucose (60-115) mg/dL Calcium (8.4-10.2) mg/dL Total Bilirubin (0.0-1.0) mg/dL AST (5-37) U/L ALT (0-40) U/L Alkaline Phosphatase (39-117) U/L Total Protein (6.5-8.0) g/dL Albumin (3.5-5.0) g/dL Triglycerides (<150) mg/dL Lipase (8-78) U/L Urine Color Urine Appearance Urine pH (5.0-9.0) Ur Specific [place] (1.005-1.025) Urine Protein (Neg-Trace) mg/dL Urine Glucose (UA) (Negative) mg/dL Urine Ketones (Negative) mg/dL Urine Blood (Negative) Urine Nitrite (Negative) Ur Leukocyte Esterase (Negative) Urine RBC (0-2) /HPF Urine WBC (0-5) /HPF Urine WBC Clumps Ur Squamous Epith Cells (0-2) /HPF Ur Transition Epith Cell Ur Renal Epithelial Cell Calcium Oxalate Crystal Leucine Crystals Cystine Crystals Tyrosine Crystals Other Crystals Urine Bacteria (None Seen) Urine Parasites Bilirubin Casts Epithelial Casts Fatty Casts Hyaline Casts Cancelled (0-2) /LPF Granular Casts Cancelled Waxy Casts Cancelled Broad Casts Cancelled RBC Casts Cancelled WBC Casts Cancelled Other Casts Cancelled Urine Trichomonas Cancelled Urine Yeast Cancelled Chlam trachomat DNA PCR DETECTED A (Not Detect.) N.gonorrhoeae DNA (PCR) NOT DETECTED (Not Detect.) Radiology Impression Discussion of test interpretation with radiology: I have reviewed the radiologist's reading. Radiologist Impression: CT/CT abdomen pelvis w IV con IMPRESSION: Increased size or thickening of the tail the pancreas. The pancreas is otherwise normal. Evidence of old trauma to the pelvis. Prescription Management I considered prescription management with: Pain Medication Discharge Plan Discharge Clinical Impression: Pancreatitis, Chlamydia infection Patient Disposition: Home, Self-Care Instructions: Pancreatitis (ED), Chlamydia (ED) Additional Instructions: Drink plenty of fluids Clear liquids advanced slowly Avoid fried food Medicine for nausea and pain Report to the ER if worsening of the pain/vomiting Take antibiotics for urinary tract infection as prescribed Prescriptions: New ondansetron 4 mg tablet,disintegrating 4 mg PO Q6-8H PRN (Reason: nausea and vomiting) Qty: 7 0RF doxycycline hyclate 100 mg tablet 100 mg PO BID Qty: 14 0RF oxycodone 5 mg tablet 5 mg PO Q6H PRN (Reason: pain) Qty: 20 0RF Rx Instructions: Partial Fill upon patient request. No Action prednisone 5 mg tablet 5 mg PO DAILY Qty: 4 0RF
[2022-12-12 15:38] LABS: MANUAL DIFF FLAG NO
--- OUTSIDE RECORDS SUMMARY | 2022-12-12 15:38 | XMS_ITS | Continuity of Care Document ---
Author Name Unknown Organization [facility] Address [address] [place] [address]- Care Team Providers Care Supervisor Keymodule Assembly Name Role Phone Raj GLOVER, Ajit Primary Care Physician Encounter [facility] [place] Date(s): 09/07/22 - 09/14/22 [facility] [address], [place] [address] Attending Physician: Raj Chang MD Referring Physician: Ajit Anthony MD Allergies, Adverse Reactions, Alerts No Known Allergies Immunizations Given and Recorded Vaccine Date Status [...] Patient tollerated well 2Result Comment: [03/14/2017] [facility] [id number] 3Result Comment: [06/19/2006] proquad Medications oxyCODONE 5 mg oral tablet See Instructions, 1 tablet By Mouth Every 4 to 6 hours as needed for pain. DO NOT DRIVE WHILE TAKING THIS MEDICATION., Refills 0, Tot. Refills 0, Maintenance, 06/29/22 9:27:00 EDT, Instructions Replace Required Details, Partial fill upon patient requ... Start Date: 06/29/22 Status: Ordered Problem List Condition Confirmation Course Effective Dates Status Health St atus Informant Closed pelvic fracture (left superior pubc ramus and inferior pubic ramus fractures) Confirmed 11/23/20 Active Closed sacral fracture Confirmed 11/23/20 Active Displaced fracture of 3rd and 4th metatarsal bone of left foot with delayed healing Confirmed 11/23/20 Active Migraine headache Confirmed Active Vital Signs Most recent to oldest [Reference Range]: 1 Height 179 cm (09/07/22 1:07 PM) Oxygen Saturation [94-100 %] 100 % (09/07/22 1:07 PM) Pulse Rate [55-90 bpm] 76 bpm (09/07/22 1:07 PM) Blood Pressure [90-138/55-84 mm Hg] 141/ 83mm Hg *H* (09/07/22 1:07 PM) Respiratory Rate [16-30 br/min] 18 br/mi n (09/07/22 1:07 PM) Temperature [96.8-100.4 DegF] 99.3 DegF (09/07/22 1:07 PM) Mode of Delivery (Oxygen) Room air (09/07/22 1:07 PM) Blood pressure sites Arm, left (09/07/22 1:07 PM) Temperature Route Temporal (09/07/22 1:07 PM) Social History Social History Type Response Smoking Status Never smoker; Tobacc o user in household: No; Type: Cigarettes; Other: father smokes; entered on: 08/29/16 Sex Patient Care team information Care Team Personnel Name: Ajit Anthony MD Position: [facility] Physician - Primary Care Member Role: PCP Address: Address: [address] [place] [address] Adult [place] [address]- Care Team Related Persons Name: JOSE ANTONIO ANTONIO Address: [place] [address] Name: ADAL GUERRIER Address: [place] [address] Name: ADAL GUERRIER Address: [place] [address]
--- OUTSIDE RECORDS SUMMARY | 2022-12-12 15:39 | XMS_ITS | Continuity of Care Document ---
Author Name Unknown Organization [facility] Address [address] [place] [address]- Care Team Providers Care Contact Lens Flashing Puncher Name Role Phone Ajit Anthony MD Primary Care Physician Encounter [facility] Date(s): 09/20/22 - 09/27/22 [facility] [address] [place] [address]- Encounter Diagnosis Otitis externa(Discharge Diagnosis) - 09/20/22 Attending Physician: Raj Chang MD Referring Physician: [...] Patient tollerated well 2Result Comment: [03/14/2017] [facility] [id number] 3Result Comment: [06/19/2006] proquad Medications hydrocortisone/neomycin/polymyxin B otic 1%-0.35%-17503 u/ml solution See Instructions, 4 drops right ear 3 times a day 7 days, # 10 mL, 0 Refills, Maintenance, 09/20/2309:15:00 EDT, [id number], Partial fill upon patient request if the prescription is for a schedule II opioid drug., 4 drops right ear 3 times a... Start Date: 09/20/22 Status: Ordered oxyCODONE 5 mg oral tablet [...] Confirmed 11/23/20 Active Migraine headache Confirmed Active Diagnosis Diagnosis Type Effective Dates Health Status inical Service Informant Otitis externa Discharge Diagnosis 09/20/22 Vital Signs Most recent to oldest [Reference Range]: 1 Height 179 cm (09/20/22 9:41 AM) Oxygen Saturation [94-100 %] 98 % (09/20/22 9:41 AM) Pulse Rate [55-90 bpm] 58 bpm (09/20/22 9:41 AM) Blood Pressure [90-138/55-84 mm Hg] 123/ 69mm Hg (09/20/22 9:41 AM) Respiratory Rate [16-30 br/min] 16 br/mi n (09/20/22 9:41 AM) Temperature [96.8-100.4 DegF] 98.2 DegF (09/20/22 9:41 AM) Mode of Delivery (Oxygen) Room air (09/20/22 9:41 AM) Blood pressure sites Arm, right (09/20/22 9:41 AM) Temperature Route Temporal (09/20/22 9:41 AM) Social History Social History Type Response Smoking Status Never smoker; Tobacc o user in household: No; Type: Cigarettes; Other: father smokes; entered on: 08/29/16 Sex Note * Tania Rice: VERIFY, PERFORM, SIGN Event Display: Patient Education/Instruction Authored Date: [id number] [facility] *[facility] Clinical Summary Name JOSE ANTONIO ANTONIO Age 22 Years 2000 PCP Ajit Anthony MD PCP Visit Date 09/20/2022 09:29:00 Additional Instructions: Scheduled Appointments?? Future Appointments ?No Future Appointments Scheduled Follow-Up Instructions ?? Diagnosis Unspecified otitis externa, unspecified ear Medications: Please continue your medications until treatment is completed or stopped by your provider. Discuss any questions related to medications with your provider. New Medications [id number], [address] [facility] [address] [place], [place] [id number], [phone] Hydrocortisone/Neomycin/Polymyxin B Otic (hydrocortisone/neomycin/polymyxin B otic 1%-0.35%-94760 u/ml solution) 4 drops right ear 3 times a day 7 days. Refills: 0. Next Dose: Medications to Continue with No Changes These medications were not printed or sent to your pharmacy Oxycodone (oxyCODONE 5 mg oral tablet) 1 tablet By Mouth Every 4 to 6 hours as needed for pain. DO NOT DRIVE WHILE TAKING THIS MEDICATION.. Next Dose: Allergy Info:?? NKA Medications Given This Visit Future Orders ?No future orders Vital Signs Height 179 cm Weight BMI Blood Pressure 123 mm Hg/69 mm Hg Temperature 98.2 DegF Pulse Rate 58 bpm Respiratory Rate 16 br/min 02 Sat Mode of Delivery 98 %/Room air You can now view a summary of your hospital visit from the comfort of your home through a free online portal called [employer]. [employer] is a website that allows you to securely view your medical information including discharge summary, medications and follow-up visits. ??You can alsosend a secure electronic message to your doctor???s office to request appointments, renew medications or just ask a question. You can enroll at [email or web address] or register during your next office visit. Disclaimer:?? The information provided is of a general nature and is intended to be used in conjunction with the recommendations and advice of your health care practitioner. ??Every effort has been made to ensure that the information provided is accurate and complete at the time it is provided to you however, as your needs change, or, as new ??information becomes available, different or additional instructions may be required. If you have questions, please consult with your primary care provider or pharmacist, as appropriate. ??This information is not intended to serve as substitution for assessment and evaluation by a qualified health care provider. If you do not have a primary care provider, you may find a [facility] provider by calling [facility] at [phone]. For information about the plan of care including goals and instructions for your diagnosis, please see the patient education orders section of this document. Patient Education Materials?? The content of this educational material or handout may have been modified, supplemented, or adapted from its original content and format to support your individualized medical care. Patient Care team information Care Team Personnel Name: Ajit Anthony MD Position: S Physician - Primary Care Member Role: PCP Address: Address: [address] [place] [address] Adult [place] [address]- [place] Care Team Related Persons Name: JOSE ANTONIO ANTONIO Address: [place] [address] Name: ADAL GUERRIER Address: [place] [address] Name: ADAL GUERRIER Address: [place] [address]
--- OUTSIDE RECORDS SUMMARY | 2022-12-12 15:39 | XMS_ITS | Continuity of Care Document ---
Author Name Unknown Organization [facility] Address [address] [place] [address]- Care Team Providers Care Stretcher Leveler Operator Helper Name Role Phone Ajit Anthony MD Primary Care Physician Encounter [facility] [place] Date(s): 09/20/22 - 10/20/22 [facility] [address] [place], [place] [address] Attending Physician: Kymberly Deshpande Admitting Physician: AdmKymberly bates Referring Physician: AdmtrKymberly Allergies, Adverse Reactions, Alerts No Known Allergies [...] Comment: Patient tollerated well 2Result Comment: [03/14/2017] [facility] [id number] 3Result Comment: [06/19/2006] proquad Medications hydrocortisone/neomycin/polymyxin B otic 1%-0.35%-34883 u/ml solution See Instructions, 4 drops right ear 3 times a day 7 days, # 10 mL, 0 Refills, Maintenance, 09/20/2309:15:00 EDT, [facility] #[id number], Partial fill upon patient request if [...] Confirmed 11/23/20 Active Migraine headache Confirmed Active Social History Social History Type Response Smoking Status Never smoker; Tobacc o user in household: No; Type: Cigarettes; Other: father smokes; entered on: 08/29/16 Sex Patient Care team information Care Team Personnel Name: Ajit Anthony MD Position: [facility] Physician - Primary Care Member Role: PCP Address: Address: [address] [place] [address] Adult [place] [address]- Care Team Related Persons Name: JOSE ANTONIO ANTONIO Address: home [address] [place] [address] Name: ADAL GUERRIER Address: home [address] [place] [address] Name: ADAL GUERRIER Address: [place] [address]
[2022-12-12 15:48] LABS: Appearance Urine Clear; Color Urine Yellow; Glucose Urine UA Negative (Negative); Leukocyte Esterase Urine Trace (Negative); Nitrite Urine Negative (Negative); PH 8.5 (5.0-9.0); UMIC TRIGGER UACC YES; Urine Blood Negative (Negative); Urine Ketones Negative (Negative); Urine Protein Negative (Neg-Trace)
[2022-12-12 15:50] LABS: Bacteria Urine None Seen (None Seen); Hyaline Casts Urine 0-2 /LPF (0-2); RBC Urine 0-2 /HPF (0-2); Squamous Epithelial Cell Urine 0-2 /HPF (0-2); UACC Culture Trigger YES
[2022-12-12 15:51] LABS: Basophils Percent Auto 0.3 % (0-2); Eosinophils Absolute Auto 0.1 X10*3/uL (0.0-0.4); Hematocrit 41.9 % (42.0-52.0); Imm Gran Abs Auto 0.05 X10*3/uL (0.00-0.03); Imm Gran Pct Auto 0.4 % (0.0-0.4); Lymphocytes Absolute Auto 1.2 X10*3/uL (1.2-4.9); Lymphocytes Percent Auto 9.8 % (20-40); Mean Corpuscular HGB Conc 33.4 g/dl (31.0-36.0); Mean Corpuscular Volume 89.7 fL (80.0-98.0); Monocytes Absolute Auto 0.7 X10*3/uL (0.1-1.2); Monocytes Percent Auto 5.8 % (2-11); Neutrophils Absolute Auto 9.8 x10*3/uL (2.0-8.3); Neutrophils Percent Auto 82.7 % (45-73); Platelet Count 206 X10*3/uL (160-400); Red Blood Count 4.67 X10*6/uL (4.60-5.80); Red Cell Distribution Width 13.2 % (11.0-16.0); White Blood Count 11.8 X10*3/uL (4.8-10.8)
[2022-12-12 15:57] LABS: Alanine Aminotransferase 10 U/L (0-40); Alkaline Phosphatase 89 U/L (39-117); Anion Gap 11 (12-20); Aspartate Amino Transferase 16 U/L (5-37); Bilirubin Total 0.7 mg/dL (0.0-1.0); Blood Urea Nitrogen 10 mg/dL (9-16); Calcium 10.2 mg/dL (8.4-10.2); Carbon Dioxide 26 mmol/L (22-29); Chloride 105 mmol/L (96-108); Creatinine Clr Calc Pharmacy 123.2; Estimated Glomerular Filt Rate > 60; Glucose Random 92 mg/dL (60-115); Lipase 230 U/L (8-78); Potassium 4.2 mmol/L (3.3-5.1); Sodium 138 mmol/L (135-145)
[2022-12-12 16:00] VITALS: BP 132/60; PULSE 78; RESP 16; TEMP 36.9; O2SAT 99
[2022-12-12 17:50] LABS: CT PCR DETECTED (Not Detect.); NG PCR NOT DETECTED (Not Detect.)
[2022-12-12] MEDS: ondansetron HCL 4 MG/2 ML VIAL IVPUSH (18:18)
[2022-12-12] MEDS: Ketorolac Tromethamine 30 MG/ML VIAL IVPUSH (18:18)
[2022-12-12] MEDS: Doxycycline Monohydrate 100 MG CAPSULE PO (18:18)
[2022-12-12] MEDS: 0.9 % Sodium Chloride 1,000 ML 999 ML IV (18:18)
[2022-12-12 18:44] LABS: Triglycerides 40 mg/dL (<150)
[2022-12-12] MEDS: Morphine Sulfate 4 MG/ML CARTRIDGE IVPUSH (19:01)
[2022-12-12] MEDS: iohexoL 350 MG/ML 100 ML INFUS..BTL IV (19:30)
[2022-12-12 20:09] VITALS: BP 99/47; PULSE 62; RESP 18; O2SAT 98
== END 2022-12-12 21:53 | disposition home or self-care (01) ==
PROVIDERS: Physician Assistant; Emergency Provider Internal Medicine
DX: K85.90 Acute pancreatitis without necrosis or infection, unspecified (principal); A74.9 Chlamydial infection, unspecified; R11.2 Nausea with vomiting, unspecified; Z79.899 Other long term (current) drug therapy
CPT/HCPCS: 0353U; 36415; 74177; 80053; 81001; 83690; 84478; 85025; 87086; 96361; 96374; 96375; 99284; J1885; J2270; J2405; Q9967

== ENCOUNTER 2023-03-08 15:46 | Emergency (ER) | payer OTHER, SELFPAY ==
--- NOTE | ~2023-03-08 | XR_ITS ---
EXAMINATION: XR CHEST CLINICAL INFORMATION: Cough COMPARISON: None available. TECHNIQUE: 2 views of the chest were obtained. FINDINGS: No significant abnormality is noted involving the heart, lungs, mediastinum, bony thorax or soft tissues. XR/XR chest 2V IMPRESSION: Unremarkable examination.
[2023-03-08 16:33] VITALS: BP 123/73; PULSE 59; RESP 16; TEMP 36.5; O2SAT 99; BMI 23.6
--- OUTSIDE RECORDS SUMMARY | 2023-03-08 16:46 | XMS_ITS | Continuity of Care Document ---
Author Name Unknown Organization [facility] Address [address] [place] [address]- Care Team Providers Care Fire Behavior Analyst Name Role Phone Ajit Anthony MD Primary Care Physician En[place] [facility] Date[place]s): 12/21/22 - 01/20/23 [facility] [address] [place], [place] [address] Attending Physician: Kymberly Deshpande Admitting Physician: Kymberly Desphande Referring Physician: AdmtrKymberly Allergies, Adverse Reactions, Alerts [...] Patient tollerated well 2Result Comment: [03/14/2017] [facility] [id number] 3Result Comment: [06/19/2006] proquad Medications hydrocortisone/neomycin/polymyxin B otic 1%-0.35%-62826 u/ml solution See Instructions, 4 drops right [...] Active Closed sacral fracture Confirmed 11/23/20 Active COVID-19 1 Confirmed 12/15/22 Active Displaced fracture of 3rd and 4th metatarsal bone of left foot with delayed healing Confirmed 11/23/20 Active Migraine headache Confirmed Active 1Problem added by Discern Expert Social History Social History Type Response Smoking Status Never smoker; Tobacc o user in household: No; Type: Cigarettes; Other: father smokes; entered on: 08/29/16 Sex Patient Care team information Care Team Personnel Name: Ajit Anthony MD Position: [facility] Physician - Primary Care Member Role: PCP Address: Address: [address] [place] [address] Adult & [place] [address]- Care Team Related Persons Name: JOSE ANTONIO ANTONIO Address: [place] [address] Name: ADAL GUERRIER Address: home [address] [place] [address] Name: ADAL GUERRIER Address: [place] [address]
--- OUTSIDE RECORDS SUMMARY | 2023-03-08 16:46 | XMS_ITS | Continuity of Care Document ---
Author Name Unknown Organization [facility] Address [address] [place] [address]- Care Team Providers Care Icu Registered Nurse Name Role Phone Ajit Anthony MD Primary Care Physician Encounter [facility] Date(s): 12/18/22 - 01/17/23 [facility] [address] [place], [place] [address] Allergies, Adverse Reactions, Alerts No Known Allergies [...] Patient tollerated well 2Result Comment: [03/14/2017] [facility] [place] 2[place] [id number] 3Result Comment: [06/19/2006] proquad Medications hydrocortisone/neomycin/polymyxin B otic 1%-0.35%-27274 u/ml solution See Instructions, 4 drops right ear 3 times a day 7 days, # 10 mL, 0 Refills, Maintenance, 09/20/2309:15:00 EDT, [facility] #[id number], Partial fill upon patient [...] Team Personnel Name: Ajit Anthony MD Position: [facility] Physician - Primary Care Member Role: PCP Address: Address: [address] [place] [address] Adult & [place] [address]- Care Team Related Persons Name: JOSE ANTONIO ANTONIO Address: [address] [place] [address] Name: ADAL GUERRIER Address: home [address] [place] [address] Name: ADAL GUERRIER Address: [place] [address]
--- OUTSIDE RECORDS SUMMARY | 2023-03-08 16:47 | XMS_ITS | Continuity of Care Document ---
Author Name Unknown Organization [facility] Address [address] [place] [address]- Care Team Providers Care Solvent Recoverer Name Role Phone Ajit Anthony MD Primary Care Physician Encounter [facility] Date(s): 12/20/22 - 01/20/23 [facility] [address] [place], [place] [address] Attending Physician: Nathaniel Díaz MD Allergies, Adverse Reactions, Alerts No Known [...] Patient tollerated well 2Result Comment: [03/14/2017] [facility] [id number] 3Result Comment: [06/19/2006] proquad Medications hydrocortisone/neomycin/polymyxin B otic 1%-0.35%-92825 u/ml solution See Instructions, 4 drops right ear 3 times a day 7 days, # 10 mL, 0 Refills, Maintenance, 09/20/2309:15:00 EDT, [facility]/pharmacy #[id number], Partial fill upon patient request if [...] Team Personnel Name: Ajit Anthony MD Position: [facility] Physician - Primary Care Member Role: PCP Address: Address: [address] [place] [address] Adult & [place] [address]- Care Team Related Persons Name: JOSE ANTONIO ANTONIO Address: [place] [address] Name: ADAL GUERRIER Address: [place] [address] Name: ADAL GUERRIER Address: [place] [address]
--- OUTSIDE RECORDS SUMMARY | 2023-03-08 16:47 | XMS_ITS | Continuity of Care Document ---
Author Name Unknown Organization [facility] Address [address] [place] [address]- Care Team Providers Care Finish Cleaner Name Role Phone Ajit Anthony MD Primary Care Physician Encounter [facility] Date(s): 12/14/22 - 12/14/[address] [address]- Discharge Disposition: A-D/C Walkout Attending Physician: Not on Staff, Attending MD Admitting Physician: Not on Staff, Admitting MD Referring Physician: Not on Staff, Referring MD Allergies, Adverse Reactions, Alerts No Known [...] tollerated well 2Result Comment: [03/14/2017] [facility] [id number] 3Result Comment: [06/19/2006] proquad Medications hydrocortisone/neomycin/polymyxin B otic 1%-0.35%-63212 u/ml solution See Instructions, 4 drops right [...] oldest [Reference Range]: 1 2 3 Height 175 cm (12/14/22 7:25 PM) Weight 68.2 kg (12/14/22 7:25 PM) Oxygen Saturation [94-100 %] 100 % (12/14/22 8:45 PM) 100 % (12/14/22 7:25 PM) 97 % (12/14/22 7:22 PM) Pulse Rate [55-90 bpm] 110 bpm *H* (12/14/22 8:45 PM) 110 bpm *H* (12/14/22 7:25 PM) 104 bpm *H* (12/14/22 7:22 PM) Body Mass Index [18.5-24.99 kg/m2] 22.27 kg/m2 (12/14/22 7:25 PM) Blood Pressure [90-138/55-84 mm Hg] 110/62mm Hg (12/14/22 8:45 PM) 155/79mm Hg *H* (12/14/22 7:25 PM) Respiratory Rate [16-30 br/min] 20 br/min (12/14/22 7:25 PM) 18 br/min (12/14/22 7:22 PM) Temperature [96.8-100.4 DegF] 98.6 DegF (12/14/22 8:45 PM) 98 DegF (12/14/22 7:25 PM) Mode of Delivery (Oxygen) Room air (12/14/22 7:25 PM) Room air (12/14/22 7:22 PM) Blood pressure sites Arm, left (12/14/22 8:45 PM) Arm, left (12/14/22 7:25 PM) Temperature Route Oral (12/14/22 8:45 PM) Oral (12/14/22 7:25 PM) Dry Weight 68.2 kg (12/14/22 7:25 PM) Weight Obtained Via Standing scale (12/14/22 7:25 PM) Dry Weight Obtained Via Standing scale (12/14/22 7:25 PM) Social History Social History Type Response Smoking Status Never smoker; Tobacc o user in household: No; Type: Cigarettes; Other: father smokes; entered on: 08/29/16 Sex Patient Care team information Care Team Personnel Name: Ajit Anthony MD Position: S Physician - Primary Care Member Role: PCP Address: Address: [address] [place] [address] Adult & Pediatric Medicine [place], [place] [address] Care Team Related Persons Name: ANTONIO JOSE ANTONIO Address: [address] [address] Name: ADAL GUERRIER Address: [place] [id number] Name: ADAL GUERRIER Address: [place] [address]
--- OUTSIDE RECORDS SUMMARY | 2023-03-08 16:48 | XMS_ITS | Patient Health Record ---
Author Name Unknown Organization [facility] Address [address] [place], [place] [id number] Support Name Relationship Address Phone Kaley Bentley Emergency Contact [address] [facility] [address] [place] [address] Unavailable Alvaro Valles Guarantor Unknown [phone] REASON FOR REFERRAL No Information SOCIAL HISTORY Sex Assigned At : Social History Observation Description Sex Assigned At Unknown PLAN OF TREATMENT Pending Test Test Name Order Date D: Treatment Plan Completed 09/18/2010 Insurance Providers Payer Name Payer Address Payer Phone Subscriber Number Group Number Insured Name Patient Relationship to Insured Coverage Start Date Coverage End Date [facility] [address] [place] [address] [id number] Alvaro Valles Self - patient is the insured MEDICAL (GENERAL) HISTORY Medical History History ICD Code Healthy, non-contributory Reviewed health hx form
--- OUTSIDE RECORDS SUMMARY | 2023-03-08 16:48 | XMS_ITS | Continuity of Care Document ---
Author Name Unknown Organization [facility] Address [address] [place] [address]- Care Team Providers Care Cleaner And Trimmer Name Role Phone Ajit Anthony MD Primary Care Physician Encounter [facility] Date(s): 12/15/22 - 12/15/[address] [address]- Discharge Disposition: A-D/C Home Attending Physician: Reina Yadav DO Admitting Physician: Reina Yadav DO Referring Physician: Not on Staff, Referring MD [...] Patient tollerated well 2Result Comment: [03/14/2017] [facility] [id number] 3Result Comment: [06/19/2006] proquad Medications hydrocortisone/neomycin/polymyxin B otic 1%-0.35%-82147 u/ml solution See Instructions, 4 drops right [...] patient requ... Start Date: 06/29/22 Status: Ordered Toradol Inj 15 mg, Injection, IV Push Slowly, Once, STAT, 12/15/22 21:41:00 EDT, Stop date 12/15/22 21:41:00 EDT Start Date: 12/15/22 Stop Date: 12/15/22 Status: Completed Problem List Condition Confirmation Course Effective Dates [...] Confirmed Active 1Problem added by Discern Expert Vital Signs Most recent to oldest [Reference Range]: 1 2 3 4 Height 175 cm (12/15/22 10:05 PM) 175 cm (12/15/22 4:49 PM) Weight 67.0 kg (12/15/22 10:05 PM) 67.0 kg (12/15/22 4:49 PM) Oxygen Saturation [94-100 %] 99 % (12/15/22 10:05 PM) 100 % (12/15/22 4:49 PM) 100 % (12/15/22 4:49 PM) Pulse Rate [55-90 bpm] 92 bpm *H* (12/15/22 10:05 PM) 104 bpm *H* (12/15/22 4:49 PM) 98 bpm *H* (12/15/22 4:49 PM) Body Mass Index [18.5-24.99 kg/m2] 21.88 kg/m2 (12/15/22 10:05 PM) Blood Pressure [90-138/55-84 mm Hg] 111/49mm Hg (12/15/22 10:05 PM) 139/84mm Hg *H* (12/15/22 4:49 PM) Respiratory Rate [16-30 br/min] 18 br/min (12/15/22 10:05 PM) 18 br/min (12/15/22 10:00 PM) 16 br/min (12/15/22 4:49 PM) 18 br/min (12/15/22 4:49 PM) Temperature [96.8-100.4 DegF] 99.5 DegF (12/15/22 10:05 PM) 99.3 DegF (12/15/22 4:49 PM) Mode of Delivery (Oxygen) Room air (12/15/22 10:05 PM) Room air (12/15/22 4:49 PM) Room air (12/15/22 4:49 PM) Blood pressure sites Arm, left (12/15/22 10:05 PM) Arm, left (12/15/22 4:49 PM) Temperature Route Oral (12/15/22 10:05 PM) Temporal (12/15/22 4:49 PM) Dry Weight 67.0 kg (12/15/22 10:05 PM) 67.0 kg (12/15/22 4:49 PM) Weight Obtained Via Standing scale (12/15/22 4:49 PM) Dry Weight Obtained Via Standing scale (12/15/22 4:49 PM) Social History Social History Type Response Smoking Status Never smoker; Tobacc o user in household: No; Type: Cigarettes; Other: father smokes; entered on: 08/29/16 Sex Note * Yady Kowalski: PERFORM, SIGN, VERIFY Event Display: Patient Education Handout Authored Date: [id number] * Yady Kowalski: PERFORM Event Display: Patient Education Leaflets Authored Date: [id number] DIET COVID-19 Nutrition Instructions ?? 581 ? Nutrition Therapy COVID-19 ?? Nutrition is an important part of your COVID-19 treatment and recovery. Your nutritional needs are higher, and you may experience loss of appetite and weight loss. ?? Using Food to Fight Back Overall, the focus is to eat a well-balanced, high protein diet that includes whole grains and a variety of fruits, and vegetables. Eat the colors of the rainbow! ??? Eat 3 meals a day. Do not skip any meals. ??? Don ???t forget to include a protein food such aseggs, cheese, yogurt or peanut butter at breakfast. ??? Be sure to include meat, vegetable and starch at lunch and dinner. ??? Eat 2 snacks a day. Try fruit with cheese or peanut butter. ??? Keep high calorie, high protein snacks readily available. Some examples include protein/granola bars, Arabic yogurt, or hardboiled eggs. ??? Add supplement drinks like Ensure or Fair Play Instant Breakfast if your appetite is poor. ?? Dealing with taste change or loss ??? Add more spices or seasonings to your food. ??? Try adding citrus to bring out brightness of flavors. ??? Fresh fruits and vegetables have stronger flavors than canned. ?? Dealing with a sore throat ??? Increase fluids? Try smoothies. ??? Avoid spicy or salty foods. ??? Avoid citrus or sour foods. ??? Choose soft moist foods. ???Add additional gravy or sauce to your food. ?? Too tired to cook or eat ??? Rest before sitting down to eat. ??? Try smoothies with added protein powder or peanut butter. ??? Try bulk cooking on days you feel stronger. ??? Try frozen meals. ??? Ask for help from friends and family ??? Try no-contact delivery ?? Don ???t forget about food safety! ??? Wash fruits and vegetables well? Cook meats thoroughly.? * Yady Kowalski: PERFORM Event Display: Patient Education Leaflets Authored Date: [id number] COVID-19 Information for Families ?? 87 COVID-19 Information for Families Information from: www.cdc.gov/COVID19 ? What is coronavirus disease 2019 (COVID-19)? Coronavirus disease 2019 (COVID-19) is a respiratory illness that can spread from person to person.The virus that causes COVID-19 is a NEW coronavirus [facility] ?? How does COVID-19 spread? The virus that causes COVID-19 probably emerged from an animal source, but is now spreading from person to person. The virus spreads mainly between people who are in close contact with one another (within 6 feet) through respiratory droplets produced when an infected person coughs or sneezes. It may be possible that a person can get COVID-19 by touching a surface or object that has the virus on it and then touching their own mouth, nose or eyes. ?? What are the symptoms? (*Most common in children) ??? Fever* ??? Runny nose ??? Aching muscles ??? Cough* ??? Sore throat ??? Congestion ??? A few can have vomiting & diarrhea ?? When should a symptomatic person seek medical care? When symptoms are getting worse ??? Breathing is more difficult ?? Call the doctor immediately if: ??? Breathing is labored ??? Tightness in chest ??? Bluish lips or face ??? New confusion or cannotarouse BEFORE seeking care, call your doctor and tell them you are Being evaluated for COVID-19. ?? What can I do to protect myself and my family from getting COVID-19? Avoid close contact with people who are sick ??? Avoid touching your eyes, nose and mouth with unwashed hands ??? Wash your hands often with soap and water for at least 20 seconds. Especially: - Before you eat, prepare food or feed your children - After diapering an or using the bathroom - Use an alcohol-based hand call center team leader if soap and water are not available ?? For cleaning use: ? ? Soap & water For disinfection use: ??? Most common EPA-registered household disinfectants should be effective ??? Alcohol solutions with at least 70% alcohol ??? Diluted bleach: - 1 tsp bleach - 1 cup of water ?? What if someone I live with has symptoms? Symptomatic people should: ??? Stay home: - In an area apart from family and pets - With a separate bathroom if possible ??? Restrict activities outside your home except for medical care ??? Cover coughs or sneezes with a tissue or your elbow (discard tissue immediately) ??? Clean and disinfect frequently touched objects and surfaces every day ??? Avoid sharing personal household items: food, drink, dishes, utensils, towels, and bedding ? Is it okay for a mother with symptoms to breastfeed her infant? Breast milk is the best source of nutrition for most infants. However, much is unknown about COVID-19. Whether to start or continue should be determined by the mother in coordination with her healthcare provider. A mother with confirmed or symptoms of COVID-19 should take all possibleprecautions to avoid spreading the virus to her , including washing her hands before touchingthe infant and wearing a face mask, if possible, while feeding at the breast. If expressing breast milk with a manual or electric breast pump, the mother should wash her hands before touching any pump or bottle parts and follow recommendations for proper pump cleaning after each use. If possible, consider having someone who is well feed the expressed breast milk to the infant. ? Patient Care team information Care Team Personnel Name: Ajit Anthony MD Position: [facility] Physician - Primary Care Member Role: PCP Address: Address: [address] [place] [address] Adult & Pediatric Medicine [address] Name: Kayleigh Gardner RN Position: [facility] ED RN W/OE and Tasks Member Role: Patient Care Provider Name: Yady Kowalski Position: [facility] Associate Professional Member Role: Physician Club Waiter/Waitress Address: Address: [address] [place] [address] Name: Reina Yadav DO Position: [facility] Resident Member Role: Admitting Physician Address: Address: [address] [place] [address] Care Team Related Persons Name: JOSE ANTONIO ANTONIO Address: home [address] [place] [id number] Name: ADAL GUERRIER Address: [address] [place] [address] Name: ADAL GUERRIER Address: [place] [address]
--- NOTE | 2023-03-08 17:17 | ED_ITS ---
HPI - General Adult General Chief complaint: Upper Respiratory Symptoms Stated complaint: weakness, chest pain, light headed Time Seen by Provider: 03/08/23 17:16 Source: patient Mode of arrival: ambulatory Limitations: no limitations History of Present Illness HPI narrative: Patient is a 22 year old assigned male at with no reported medical history presenting to the emergency department today with a cough and body aches. Patient states that over the last week he has had a cough and body aches. Patient denies any dizziness, lightheadedness, abdominal pain, nausea, vomiting, fever, chills, blurry vision, double vision, loss of vision, chest pain, difficulty breathing, shortness of breath, back pain, night sweats, pain with urination, increased urinary frequency, increased urinary urgency, blood in his urine or stool, syncope or a near syncopal episode, recent trauma or falls, bowel incontinence, bladder incontinence, bowel retention, bladder retention, or any other complaints at this time. Onset (ago): week(s) (1) Severity: mild Severity scale (1-10): 3 Relieving factors: none Exacerbating factors: none Associated symptoms: cough Treatments prior to arrival: none Related Data Previous Rx's Medication Instructions Recorded prednisone 5 mg tablet 5 mg PO DAILY #4 tabs 08/27/22 doxycycline hyclate 100 mg tablet 100 mg PO BID #14 tabs 12/12/22 ondansetron 4 mg disintegrating 4 mg PO Q6-8H PRN nausea and 12/12/22 tablet vomiting #7 tabs oxycodone 5 mg tablet 5 mg PO Q6H PRN pain #20 tabs 12/12/22 doxycycline hyclate 100 mg tablet 100 mg PO BID 7 days #14 tabs 03/08/23 prednisone 20 mg tablet 20 mg PO DAILY 7 days #7 tabs 03/08/23 Allergies Allergy/AdvReac Type Severity Reaction Status Date / Time No Known Allergies Allergy Verified 03/08/23 16:33 Review of Systems Constitutional: Constitutional: Reports no additional constitutional complaints, Reports body ache(s), Denies chills, Denies fever(s) and Denies night sweats Eyes: Eyes: Reports no additional eye complaints, Denies blurry vision, Denies change in vision, Denies diplopia, Denies eye discharge, Denies loss of vision and Denies eye pain ENT: Denies dizziness Cardiovascular: Cardiovascular: Reports no additional cardiovascular complaints, Denies chest pain, Denies lightheadedness, Denies Loss of Consci ousness and Denies dyspnea Respiratory: Respiratory: Reports no additional respiratory complaints, Reports cough and Denies dyspnea Gastrointestinal: Gastrointestinal: Reports no additional gastrointestinal complaints, Denies abdominal pain, Denies melena, Denies hematochezia, Denies change in bowel habits and Denies change in stool character Genitourinary: Genitourinary: Reports no additional male genitourinary complaints, Denies hematuria, Denies oliguria, Denies difficulty urinating, Denies dysuria, Denies urinary frequency, Denies urinary hesitancy, Denies urinary incontinence and Denies urinary urgency Musculoskeletal: Musculoskeletal: Reports no additional musculoskeletal complaints, Denies numbness and Denies tingling Neurologic: Denies dizziness, Denies loss of vision, Denies numbness and Denies tingling Psychiatric: Psychiatric: Reports no additional psychiatric complaints Endocrine: Endocrine: Reports no additional endocrine complaints Hematologic/Lymphatic: Hematologic/Lymphatic: Reports no additional hematologic/lymphatic complaints Allergic/Immunologic: Allergic/Immunologic: Reports no additional allergic/im munologic complaints [facility] Past Medical History Attestation statement: The following information was validated with the patient. Source: old records reviewed and nursing notes reviewed Social History Social History Alcohol intake: current Alcohol intake frequency: holidays/special occasions only Substance Use Type: Marijuana Advance Directives: No Advance Directives Information Provided: No Physical Exam ED Vital Signs: Vital Signs - 24 hr 03/08/23 16:33 Temperature 97.7 F Pulse Rate 59 Respiratory Rate 16 Blood Pressure 123/73 Pulse Oximetry 99 Oxygen Delivery Method Room Air BMI result Body Mass Index 23.6 Const General: cooperative, no acute distress, alert and awake Nutritional Appearance: well nourished Orientation/consciousness: patient oriented x3 Limitations: no limitations HENMT Head: Yes normal to inspection and Yes atraumatic Ears: hearing grossly normal bilaterally and external ears normal General nose exam: Normal external nose present, no nasal discharge noted and no epistaxis Face and sinus: Yes normal facial exam, No abrasion and No laceration Mouth: Normal oral and palatal mucosa present, no drooling and no muffled voice Eyes General: appearance normal, both eyes and all related structures Periorbital: periorbital findings normal Eyelids: Yes eyelids normal Conjunctivae: conjunctivae normal Pupils: Equal, round and reactive pupils present EOM: EOMs intact bilaterally Neck Neck: Yes normal visual inspection, Yes full ROM and Yes no lymphadenopathy Chest Chest palpation & inspection: normal inspection of the chest Resp Effort & Inspection: normal respiratory effort and able to speak in complete sentences Auscultation: clear to auscultation bilaterally Cardio Rate: regular rate Rhythm: regular rhythm GI Inspection: Yes normal to inspection Neuro General: patient oriented x3 and moves all extremities Cranial nerves: Yes Equal, round and reactive pupils present Cognition (Neuro): normal cognition Motor exam (neuro): 5/5 motor strength present throughout Sensory Exam: Normal double simultaneous stimulation for sensation Coordination: [id number] test normal Extrem General: Yes normal to inspection, Yes full ROM and Yes capillary refill normal Psych Appearance: grossly normal Mental Status: mental status grossly normal Affect: normal affect Attitude: cooperative Thought process: Normal thought process present Thought content: Normal thought content present Insight: Good insight present (Psych) Medications Administered Discontinued Medications Generic Name Dose Route Start Last Admin Trade Name Freq PRN Reason Stop Dose Admin Dexamethasone Sodium Phosphate 10 mg 03/08/23 17:41 03/08/23 18:02 Dexamethasone Sod Phosphate 10 Mg/Ml Vial PO 03/08/23 17:42 10 mg ONCE ONE Administration Medical Decision Making Medical Decision Making [facility] Narrative: Patient is a 22 year old assigned male at with no reported medical history presenting to the emergency department today with a cough and body aches. Patient's physical exam was unremarkable. Patient's chest x-ray showed no acute process. Patient's COVID-19/Influenza/RSV swab was negative. I explained my physical exam findings as well as all test results to the patient. I answered all questions asked by the patient. I stressed the importance of the patient taking his medication as prescribed. I stressed the importance of the patient following up with his primary care provider. I stressed the importance of the patient returning to the emergency department immediately if his symptoms were to worsen or if he were to develop any dizziness, shortness of breath, difficulty breathing, chest pain, blurry vision, loss of vision, nausea, vomiting, abdominal pain, fever, chills, back pain, or any other complaints. Patient verbalized agreement and understanding with this treatment plan and discharge. Differential Diagnosis Differential Diagnoses: The differential diagnosis associated with the presentation includes Cough Bronchitis RSV COVID-19 Influenza URI Admission/Observation Consideration of admission/observation: Escalation of care including admission/observation considered Patient would have been admitted to the hospital had his work up had any findings where hospital admission was appropriate and his clinical presentation warranted hospital admission. Lab Data MDM Lab Attestation statement: I reviewed the patient's lab results. My interpretation of these studies and their corresponding values is that they a re grossly normal. Labs: Lab Results 03/08/23 Range/Units 16:43 Influenza Type A (PCR) NEGATIVE (Negative) Influenza Type B (PCR) NEGATIVE (Negative) RSV RNA Qual (PCR) NEGATIVE (Negative) SARS-CoV-2 RNA (RT-PCR) NEGATIVE (Negative) Independent Interpretation I performed an independent interpretation of an: Plain X-Ray Interpretation: My interpretation is in agreement with the radiologist's impression of this imaging study. EXAMINATION: XR CHEST CLINICAL INFORMATION: Cough COMPARISON: None available. TECHNIQUE: 2 views of the chest were obtained. FINDINGS: No significant abnormality is noted involving the heart, lungs, mediastinum, bony thorax or soft tissues. XR/XR chest 2V IMPRESSION: Unremarkable examination. Dictated By: Anh Tinsley MD Signed By: Electronically signed by Anh Tinsley MD 03/08/23 7677 Radiology Impression Discussion of test interpretation with radiology: I have reviewed the radiologist's reading. Prescription Management I considered prescription management with: Antibiotic (given length and quality of patient's symptoms, antibiotic prescribed.) Discharge Plan Discharge Clinical Impression: Bronchitis Patient Disposition: Home, Self-Care Instructions: Acute Bronchitis (ED) Additional Instructions: Follow up with your primary care provider. Return to the emergency department immediately if your symptoms worsen or if you develop any dizziness, shortness of breath, difficulty breathing, chest pain, blurry vision, loss of vision, nausea, vomiting, abdominal pain, fever, chills, back pain, or any other complaints. Prescriptions: New prednisone 20 mg tablet 20 mg PO DAILY 7 Days Qty: 7 0RF doxycycline hyclate 100 mg tablet 100 mg PO BID 7 Days Qty: 14 0RF No Action ondansetron 4 mg tablet,disintegrating 4 mg PO Q6-8H PRN (Reason: nausea and vomiting) Qty: 7 0RF doxycycline hyclate 100 mg tablet 100 mg PO BID Qty: 14 0RF oxycodone 5 mg tablet 5 mg PO Q6H PRN (Reason: pain) Qty: 20 0RF Rx Instructions: Partial Fill upon patient request. prednisone 5 mg tablet 5 mg PO DAILY Qty: 4 0RF Referrals: [facility] Family Medicine [Provider Group] (Call to establish and follow up with a primary care provider. If you already have a primary care provider, please follow up with them.) [facility] [Provider Group] (Call to establish and follow up with a primary care provider. If you already have a primary care provider, please follow up with them.) [facility] [Provider Group] (Call to establish and follow up with a primary care provider. If you already have a primary care provider, please follow up with them.) Discharge Date/Time: 03/08/23 18:09 Print Language: Puerto Rican
[2023-03-08 17:30] LABS: Influenza A PCR NEGATIVE (Negative); Influenza B PCR NEGATIVE (Negative); Resp Syncy Virus RNA Qual PCR NEGATIVE (Negative); SARS COV2 PCR INHOUSE NEGATIVE (Negative)
[2023-03-08] MEDS: dexAMETHasone sod phosphate 10 MG/ML VIAL PO (18:02)
== END 2023-03-08 18:09 | disposition home or self-care (01) ==
PROVIDERS: Emergency Provider Emergency Medicine
DX: J40 Bronchitis, not specified as acute or chronic (principal); R07.89 Other chest pain; R53.1 Weakness; R42 Dizziness and giddiness; R05.9 Cough, unspecified; Z20.822 Contact with and (suspected) exposure to COVID-19; Z20.828 Contact with and (suspected) exposure to other viral communicable diseases; Z79.899 Other long term (current) drug therapy
CPT/HCPCS: 0241U; 71046; 99281; 99283; J1100